=== PATIENT | male | born 1955 | race African-American/Black ===

== ENCOUNTER → 2018-09-25 | Outpatient (CLI) | payer MEDICARE, MEDICAID ==
[2018-09-26 09:17] LABS: ABSOLUTE EOSINOPHILS # (AUTO) 0.1 10^3/uL (0.0-0.6); ABSOLUTE LYMPHOCYTES (AUTO) 2.7 10^3/uL (0.5-4.7); ABSOLUTE MONOCYTES (AUTO) 0.8 10^3/uL (0.1-1.4); ABSOLUTE NEUT (AUTO) 1.4 10^3/uL (1.7-8.2); BASOPHILS % (AUTO) 0.5 % (0-2); EOSINOPHILS % (AUTO) 2.4 % (0-6); HEMATOCRIT 38.9 % (37.9-51.0); HEMOGLOBIN 13.2 g/dL (13.5-17.0); LYMPHOCYTES % (AUTO) 53.6 % (13-45); MEAN CORPUSCULAR HEMOGLOBIN 30.9 pg (27.0-33.4); MEAN CORPUSCULAR HGB CONC 33.9 g/dL (32.0-36.0); MEAN CORPUSCULAR VOLUME 91 fl (80-97); MONOCYTES % (AUTO) 16.5 % (3-13); PLATELET COUNT 191 10^3/uL (150-450); RED BLOOD COUNT 4.26 10^6/uL (4.35-5.55); RED CELL DISTRIBUTION WIDTH 13.5 % (11.5-14.0); TOTAL CELLS COUNTED % (AUTO) 100 %; WHITE BLOOD COUNT 5.1 10^3/uL (4.0-10.5)
[2018-09-26 09:34] LABS: ALANINE AMINOTRANSFERASE 47 U/L (21-72); ALBUMIN 4.6 g/dL (3.5-5.0); ALKALINE PHOSPHATASE 76 U/L (38-126); ANION GAP 8 (5-19); ASPARTATE AMINO TRANSFERASE 76 U/L (17-59); BILIRUBIN,DIRECT 0.2 mg/dL (0.0-0.4); BILIRUBIN,TOTAL 0.7 mg/dL (0.2-1.3); BLOOD UREA NITROGEN 14 mg/dL (7-20); CALCIUM 9.8 mg/dL (8.4-10.2); CARBON DIOXIDE 26 mmol/L (22-30); CHLORIDE 109 mmol/L (98-107); CHOLESTEROL 130.33 mg/dL (0-200); GLUCOSE 129 mg/dL (75-110); POTASSIUM 4.3 mmol/L (3.6-5.0); SODIUM 143.1 mmol/L (137-145); TOTAL PROTEIN 7.4 g/dL (6.3-8.2); TRIGLYCERIDES 90 mg/dL (<150)
[2018-09-26 09:45] LABS: DIRECT LDL 69 mg/dL (<100)
[2018-09-26 10:12] LABS: APPEARANCE,URINE CLOUDY; BILIRUBIN,URINE NEGATIVE (NEGATIVE); CALCIUM OXALATE CRYSTALS,URINE MANY /HPF; COLOR,URINE DARK YELLOW; GLUCOSE, URINE NEGATIVE (NEGATIVE); KETONES,URINE TRACE mg/dL (NEGATIVE); LEUKOCYTE ESTERASE,URINE MODERATE (NEGATIVE); NITRITE,URINE NEGATIVE (NEGATIVE); PROTEIN,URINE NEGATIVE (NEGATIVE); URINE SPECIFIC GRAVITY 1.029
== END ==
LOC: OD 14:18
PROVIDERS: ATTEND Physician Assistant
DX: F20.3 Undifferentiated schizophrenia (principal); Z79.899 Other long term (current) drug therapy
CPT/HCPCS: 36415; 80053; 80061; 81001; 83036; 85025; 87086

== ENCOUNTER 2018-10-31 21:52 | Emergency (ER) | payer MEDICARE, MEDICAID ==
[2018-11-01 02:02] LABS: ABSOLUTE EOSINOPHILS # (AUTO) 0.1 10^3/uL (0.0-0.6); ABSOLUTE LYMPHOCYTES (AUTO) 2.1 10^3/uL (0.5-4.7); ABSOLUTE MONOCYTES (AUTO) 0.4 10^3/uL (0.1-1.4); ABSOLUTE NEUT (AUTO) 1.1 10^3/uL (1.7-8.2); BASOPHILS % (AUTO) 0.7 % (0-2); EOSINOPHILS % (AUTO) 3.3 % (0-6); HEMATOCRIT 36.6 % (37.9-51.0); HEMOGLOBIN 12.4 g/dL (13.5-17.0); LYMPHOCYTES % (AUTO) 55.6 % (13-45); MEAN CORPUSCULAR HEMOGLOBIN 31.5 pg (27.0-33.4); MEAN CORPUSCULAR VOLUME 93 fl (80-97); MONOCYTES % (AUTO) 11.2 % (3-13); PLATELET COUNT 168 10^3/uL (150-450); RED BLOOD COUNT 3.95 10^6/uL (4.35-5.55); RED CELL DISTRIBUTION WIDTH 13.7 % (11.5-14.0); SEGMENTED NEUTROPHILS % (AUTO) 29.2 % (42-78); TOTAL CELLS COUNTED % (AUTO) 100 %; WHITE BLOOD COUNT 3.8 10^3/uL (4.0-10.5)
[2018-11-01 02:44] LABS: ALANINE AMINOTRANSFERASE 23 U/L (21-72); ALCOHOL < 10 mg/dL (NONE DETECTED); ALKALINE PHOSPHATASE 60 U/L (38-126); ANION GAP 7 (5-19); ASPARTATE AMINO TRANSFERASE 20 U/L (17-59); BILIRUBIN,DIRECT 0.3 mg/dL (0.0-0.4); BILIRUBIN,TOTAL 0.5 mg/dL (0.2-1.3); BLOOD UREA NITROGEN 13 mg/dL (7-20); CARBON DIOXIDE 32 mmol/L (22-30); CHLORIDE 103 mmol/L (98-107); GLUCOSE 111 mg/dL (75-110); SODIUM 142.2 mmol/L (137-145); TOTAL PROTEIN 6.8 g/dL (6.3-8.2)
[2018-11-01 02:45] LABS: ACETAMINOPHEN < 10 ug/mL (10-30); SALICYLATE < 1.0 mg/dL (2.0-20.0)
--- NOTE | 2018-11-01 03:50 | ER Document Report ---
Addendum entered and electronically signed by ANA MARIA GRIGGS DO 11/08/18 17:24: Discharge - Discharge Clinical Impression: Paranoia Schizophrenia Qualifiers: Schizophrenia type: unspecified Qualified Code(s): F20.9 - Schizophrenia, unspecified Condition: Stable Disposition: HOME, SELF-CARE Additional Instructions: You have been evaluated by both medical and behavioral health providers while in the emergency department. you are felt to be at your baseline and stable. You have been cleared from both acute medical and psychiatric services. Schizophrenia Schizophrenia is a chemical disorder that affects how the brain functions. The exact cause is unknown, but it tends to run in families. It is NOT caused by emotional trauma. Schizophrenia causes disordered thinking, including unusual beliefs and inability to "process" happenings around the patient. Patients with schizophrenia benefit greatly from medicine. These medicines are called antipsychotics. Never stop the medicine without the doctor's approval. Counselling may help the patient deal with his disease. Schizophrenics require a very ordered environment. Stresses and sudden changes may bring out symptoms. Drugs and alcohol abuse may become problems. Contact the counsellor or crisis line if there are thoughts of suicide or of harming others, or if you become aware of unusual thoughts or beliefs Follow up: You should follow up with your outpatient medication provider at [facility] ([facility]) within 5-7 days. you should take your medications as prescribed. They are the same medications your provider had prescribed to you. If your symptoms return, persist or worsen contact your physician, utilize mobile crisis or return to the emergency department. Prescriptions: Olanzapine [Zyprexa] 20 mg PO QHS #14 tablet Benztropine Mesylate [Cogentin 1 mg Tablet] 1 tab PO DAILY #14 tab Lorazepam [Ativan 0.5 mg Tablet] 0.5 mg PO Q8 PRN #14 tab PRN Reason: anxiety Referrals: [facility] [Outside] - Follow up in 1 week [facility] Crisis Team [Outside] - Follow up as needed SUZANNA KINNEY PA-C [Primary Care Provider] - Follow up as needed Addendum entered and electronically signed by SOLANGE DAMON LPC 11/08/18 17:11: Discharge - Discharge Clinical Impression: Paranoia Schizophrenia Qualifiers: Schizophrenia type: unspecified Qualified Code(s): F20.9 - Schizophrenia, unspecified Condition: Stable Disposition: HOME, SELF-CARE Additional Instructions: You have been evaluated by both medical and behavioral health providers while in the emergency department. you are felt to be at your baseline and stable. You have been cleared from both acute medical and psychiatric services. Schizophrenia Schizophrenia is a chemical disorder that affects how the brain functions. The exact cause is unknown, but it tends to run in families. It is NOT caused by emotional trauma. Schizophrenia causes disordered thinking, including unusual beliefs and inability to "process" happenings around the patient. Patients with schizophrenia benefit greatly from medicine. These medicines are called antipsychotics. Never stop the medicine without the doctor's approval. Counselling may help the patient deal with his disease. Schizophrenics require a very ordered environment. Stresses and sudden changes may bring out symptoms. Drugs and alcohol abuse may become problems. Contact the counsellor or crisis line if there are thoughts of suicide or of harming others, or if you become aware of unusual thoughts or beliefs Follow up: You should follow up with your outpatient medication provider at [facility] [place] ([facility]) within 5-7 days. you should take your medications as prescribed. They are the same medications your provider had prescribed to you. If your symptoms return, persist or worsen contact your physician, utilize mobile crisis or return to the emergency department. Referrals: SUZANNA KINNEY PA-C [Primary Care Provider] - Follow up as needed [facility] [Outside] - Follow up in 1 week [facility] Crisis Team [Outside] - Follow up as needed Original Note: ED General - General Chief Complaint: Psych Problem Stated Complaint: IVC Time Seen by Provider: 11/01/18 00:43 Primary Care Provider: SUZANNA KINNEY PA-C [Primary Care Provider] - Follow up as needed Notes: Patient is a 62-year-old male with a past history of blindness, schizophrenia, presents on involuntary commitment. The patient is not a reliable historian, states that he should not be here, that his family is using IVC to get him out of the house. I do see report does indicate that the patient has been agitated, paranoid, fighting at the area, compatible with a members, putting cigarettes out on the floor, refusing to bathe or take care of himself. Patient denies some of these allegations although does state that he has not been cleaning himself and believes that people are trying to cursed him. He is not currently taking any medications. Nothing seems to improve or worsen his symptoms. Patient denies a history of previous psychiatric diagnoses. TRAVEL OUTSIDE OF THE [place] IN LAST 30 DAYS: No - Related Data Allergies/Adverse Reactions: No Known Allergies Allergy (Unverified 10/31/18 21:53) Past Medical History - General Information source: Patient - Social History Smoking Status: Current Every Day Smoker Chew tobacco use (# tins/day): No Frequency of alcohol use: None Drug Abuse: None Lives with: Family Family History: Reviewed & Not Pertinent Patient has suicidal ideation: No Patient has homicidal ideation: No Neurological Medical History: Reports: Hx Migraine Renal/ Medical History: Denies: Hx Peritoneal Dialysis Review of Systems - Review of Systems Notes: Constitutional: Negative for fever. HENT: Negative for sore throat. Eyes: Negative for visual changes. Cardiovascular: Negative for chest pain. Respiratory: Negative for shortness of breath. Gastrointestinal: Negative for abdominal pain, vomiting or diarrhea. Genitourinary: Negative for dysuria. Musculoskeletal: Negative for back pain. Skin: Negative for rash. Neurological: Negative for headaches, weakness or numbness. 10 point ROS negative except as marked above and in HPI. Physical Exam - Vital signs Vitals: Temp Pulse Resp BP Pulse Ox 98.2 F 83 18 103/84 100 10/31/18 22:01 10/31/18 22:01 10/31/18 22:01 10/31/18 22:01 10/31/18 22:01 Interpretation: Normal Notes: PHYSICAL EXAMINATION: GENERAL: Well-appearing, well-nourished and in no acute distress. HEAD: Atraumatic, normocephalic. ENT: nares patent, oropharynx clear without exudates. Moist mucous membranes. NECK: Normal range of motion, supple without lymphadenopathy LUNGS: Breath sounds clear to auscultation bilaterally and equal. No wheezes rales or rhonchi. HEART: Regular rate and rhythm without murmurs ABDOMEN: Soft, nontender, normoactive bowel sounds. No guarding, no rebound. No masses appreciated. EXTREMITIES: Normal range of motion, no pitting or edema. No cyanosis. NEUROLOGICAL: No focal neurological deficits. Moves all extremities spontaneously and on command. PSYCH: Normal mood, normal affect. SKIN: Warm, Dry, normal turgor, no rashes or lesions noted. Course - Re-evaluation Re-evalutation: 11/01/18 03:48 Patient presents on involuntary commitment due to familial concerns of not taking care of himself, stating that people are trying to cursed him, quite paranoid about his family's interactions. The patient himself states that he does believe people are trying to cursed him, believes that he is here because his family wants to get rid of him and they are using this IVC as a means to get him out of the house and into an institution. Patient states that he has not "psycho". Does not take any medications. Is otherwise calm and cooperative. He is blind at baseline. Denies any physical complaints. Physical screening exam otherwise unremarkable. Labs unremarkable. He is cleared for evaluation disposition by [facility] in the morning. - Vital Signs Vital signs: Temp Pulse Resp BP Pulse Ox 98.2 F 83 18 103/84 100 10/31/18 22:01 10/31/18 22:01 10/31/18 22:01 10/31/18 22:01 10/31/18 22:01 - Laboratory Result Diagrams: 11/01/18 01:35 11/01/18 01:35 Laboratory results interpreted by me: 11/01/18 11/01/18 01:35 01:35 WBC 3.8 L RBC 3.95 L Hgb 12.4 L Hct 36.6 L Seg Neutrophils % 29.2 L Lymphocytes % 55.6 H Absolute Neutrophils 1.1 L Carbon Dioxide 32 H Glucose 111 H Salicylates < 1.0 L Acetaminophen < 10 L - EKG Interpretation by Me Additional EKG results interpreted by me: 11/01/18 03:48 Sinus rhythm, rate 61. No ST elevations or depressions. QTC is 456. Discharge - Discharge Clinical Impression: Paranoia Schizophrenia Qualifiers: Schizophrenia type: unspecified Qualified Code(s): F20.9 - Schizophrenia, unspecified Referrals: SUZANNA KINNEY PA-C [Primary Care Provider] - Follow up as needed
[2018-11-01 04:08] LABS: APPEARANCE,URINE CLOUDY; BILIRUBIN,URINE NEGATIVE (NEGATIVE); CALCIUM OXALATE CRYSTALS,URINE MANY /HPF; COLOR,URINE AMBER; GLUCOSE, URINE NEGATIVE (NEGATIVE); KETONES,URINE NEGATIVE (NEGATIVE); LEUKOCYTE ESTERASE,URINE SMALL (NEGATIVE); NITRITE,URINE NEGATIVE (NEGATIVE); PROTEIN,URINE NEGATIVE (NEGATIVE); URINE SPECIFIC GRAVITY 1.023
[2018-11-01 04:23] LABS: URINE AMPHETAMINES SCREEN NEGATIVE; URINE BARBITURATES SCREEN NEGATIVE; URINE BENZODIAZEPINES SCREEN NEGATIVE; URINE COCAINE SCREEN NEGATIVE; URINE MARIJUANA (THC) SCREEN UNCONFIRMED POSITIVE; URINE METHADONE SCREEN NEGATIVE; URINE PHENCYCLIDINE SCREEN NEGATIVE
--- NOTE | 2018-11-01 10:26 | ER Document Report ---
Doctor's Note Notes: 11/01/18 10:25 Patient seen and evaluated. He does not appear to be in any acute distress. He does not want to eat breakfast and states that he would like his own food. He is paranoid that the food is somehow contaminated and will poison him. Patient has had significant weight loss recently likely from his paranoid behaviors. His lab work was unremarkable and vital signs are stable. Recommend admission to psychiatric facility for further management of his acute paranoia
--- NOTE | 2018-11-01 16:34 | PSYCHOLOGICAL NOTE ---
Psych Note - Psych Note Date seen by psych provider: 11/01/18 Time seen by psych provider: 07:55 Psych Note: Reason for Consult: Delusions Patient is a 62-year-old male with a past history of blindness, schizophrenia, presents on involuntary commitment. The patient is not a reliable historian, states that he should not be here, that his family is using IVC to get him out of the house. Patient discloses that he left his family's home and was looking for a place to stay because he wants to live on his own. Patient denies any thoughts of wanting to harm himself or others and denies any difficulties with auditory visual hallucinations. When asked about his concerns his family was trying to hurt him he states "in a way I was feeling they were trying to hurt me but now no I just would like a place to live on my own." Patient continues to minimize his delusions. Patient does report that he has never weighed so little in all his life. Patient is approximately 136 pounds and reports that he normally weighs 170. When asked what led to the weight loss he reports that he just did not want to eat he refuses to further discuss why he did not want to eat. Clinician notes there is previous documentation reporting the patient has stopped eating because he is afraid he is being poisoned. Patient confirms he goes to [facility] and has been taking his medication however then states that he may have missed a few days recently. When asked about thoughts of wanting to harm himself or others he states "I am not a violent person I have never done anything violent or threatening you can ask my doctors." Patient is alert and orientated to person, place, time and circumstance. Mood is euthymic with flat affect. Patient denies suicidal and homicidal ideation. Patient reportedly has been having paranoid delusions of being poisoned by family. There is significant concern the patient has stopped eating as he has recently lost over 30 pounds. Patient does attempt to minimize and tries to redirect conversation when clinician attempts to discuss his delusions. Thought processes are organized and linear however illogical. Patient is blind. Conversational speech is within normal rate, tone and prosody. Clinician notes patient is very polite and proper. Patient does have a noticeable aroma of body odor. There is reports of concern the patient has stopped and self care and refuses to bathe. Intellectual abilities appear to be within the average range. Attention and concentration are fair. Insight, judgment, impulse control is poor. Schizophrenia per history Impression\\plan: Patient is recommended to continue under IVC. While patient de nies thoughts of wanting to harm himself or others, patient is having delusions that have manifested to the point that he is unable to keep himself from harm. Patient has stopped eating, he is afraid of being poisoned, and has recently lost over 30 pounds. Patient is recently stopped self-care and does not bathe. Patient attempts to minimize and redirect and does not appear to fully disclose his concerns. IVC petition is from family which reports the patient has been having difficulties with both auditory and visual hallucinations as evidenced by fighting with the air, reporting he is hearing things. He has started walking in the streets (patient is blind) and has been destroying furniture and putting out his cigarettes on floors in the home.
[2018-11-01] MEDS: OLANZAPINE 5 MG TABLET PO SCH (23:20)
--- NOTE | 2018-11-01 23:29 | EKG REPORT ---
SEVERITY:- NORMAL ECG - SINUS RHYTHM : Confirmed by: Carlos Eduardo Castillo 01-Nov-2018 23:29:09
[2018-11-02] MEDS: PRENATAL VITAMIN W DHA CAPSULE PO SCH (09:44)
--- NOTE | 2018-11-02 17:09 | PSYCHOLOGICAL NOTE ---
Psych Note - Psych Note Date seen by psych provider: 11/02/18 Time seen by psych provider: 07:55 Psych Note: Reason for Consult: Delusions Patient is a 62-year-old male with a past history of blindness, schizophrenia, presents on involuntary commitment. The patient is not a reliable historian, states that he should not be here, that his family is using IVC to get him out of the house. Check-in conducted with patient Patient continues to not eat well however does drink 1 Ensure, one milk, and one ice cream. Patient asked for a shower. Patient is very pleasant with euthymic mood and congruent affect. Patient continues to endorse not wanting to return home as he feels his family is trying to kill him. Continue home medications Schizophrenia per history Impression\\plan: Patient is recommended to continue under IVC. While patient denies thoughts of wanting to harm himself or others, patient is having delusions that have manifested to the point that he is unable to keep himself from harm. Patient has stopped eating, he is afraid of being poisoned, and has recently lost over 30 pounds. Patient has recently stopped self-care and does not bathe; clincian notes the patient has improved and has asked for a shower. Patient attempts to minimize and redirect and does not appear to fully disclose his concerns. IVC petition is from family which reports the patient has been having difficulties with both auditory and visual hallucinations as evidenced by fighting with the air, reporting he is hearing things. He has started walking in the streets (patient is blind) and has been destroying furniture and putting out his cigarettes on floors in the home. Overall there are concerns as the patient's delusions have started to manifest into self-harm with refusing to eat. Patient admits to being off his medications "for a few days."Patient's home medications have been restarted. Patient be reevaluated. Dr. Preciado was consulted to care management this patient; attending physicians in agreement with recommendations and disposition.
--- NOTE | 2018-11-02 17:31 | ER Document Report ---
Doctor's Note Notes: 11/02/18 17:29 I reviewed the patient's chart, and the psychiatric notes for today. The patient still believes that his food is being poisoned and is refusing to eat food. The nurse was able to give him Ensure in small cartons, telling him it is milk. He feels comfortable taking the Ensure because he is able to open the carton himself. He will remain on IVC hold as he does still remain a danger to himself based on the behavior that was cited in the IVC paperwork, and his continued paranoid delusions about being poisoned.
[2018-11-02] MEDS: OLANZAPINE 5 MG TABLET PO SCH (22:32)
[2018-11-03] MEDS: PRENATAL VITAMIN W DHA CAPSULE PO SCH (09:53)
--- NOTE | 2018-11-03 10:38 | ER Document Report ---
Doctor's Note Notes: 11/03/18 9:37 Patient with no issues overnight Apparently became agitated this morning when he was told he might be going home AVSS NAD Asking for crackers Will discuss with mental health
--- NOTE | 2018-11-03 16:29 | PSYCHOLOGICAL NOTE ---
Psych Note - Psych Note Date seen by psych provider: 11/03/18 Time seen by psych provider: 08:40 Psych Note: Reason for Consult: Delusions Patient is a 62-year-old male with a past history of blindness, schizophrenia, presents on involuntary commitment. The patient is not a reliable historian, states that he should not be here, that his family is using IVC to get him out of the house. Check-in conducted with patient Patient's mood is euthymic with congruent affect. He reports that he is feeling "good." When clinician discusses the patient not eating he confirms that he has not been eating out of fear that he would be poisoned; "that is part of it my family have just not going to eat my mother's food." He continued to make the connection of his recent significant weight loss to him not eating; "I guess is why lost all this weight... I have never weighed this little before." He continued to report that he would be fine if he could go and stay at [facility] senior care so he can have his own place. He reports that he will not eat as his mother's home. When discussing options of other places to eat if he returned to live home at home with his mother patient was unable to problem solve and identifying alternate locations to eat. Patient reports that upon discharge he will just walked to [facility] to get his own place; "I am not going back there so they can just keep doing what they are doing..., Like here you are doing it to... Keeping me locked up in a room." Patient is unable or unwilling to understand that the patient cannot just walk to a senior care for a new place to stay. Clinician successfully attempted to psychoeducation patient on application process etc. Clinician was notified that the patient has been deteriorating has been very irritable with pacing. Continue home medications Schizophrenia per history Impression\\plan: Patient is recommended to continue under IVC. While patient denies thoughts of wanting to harm himself or others, patient is having delusions that have manifested to the point that he is unable to keep himself from harm. Patient has stopped eating, he is afraid of being poisoned, and has recently lost over 30 pounds. Patient is recently stopped self-care and does not bathe. IVC petition is from family which reports the patient has been having difficulties with both auditory and visual hallucinations as evidenced by fighting with the air, reporting he is hearing things. He has started walking in the streets (patient is blind) and has been destroying furniture and putting out his cigarettes on floors in the home. Patient continues to report that his family is trying to kill him and states that he would like to go live in a senior care. He discloses that he will eat when he is staying in a senior care however continues to report that he not eat if he returns back to his home. Patient is unable to engage in problem solving and identifying alternate locations of eating while living with his family. Clinician notes patient did eat for the first time last night. Some improvement has been noticed. Integrated family services will be looking into possibly assisting the patient into getting into a senior care. Patient will be reevaluated. Dr. Preciado was consulted to care management this patient; attending physicians agreement with recommendations and disposition.
[2018-11-03] MEDS: OLANZAPINE 5 MG TABLET PO SCH (21:32)
[2018-11-03] MEDS ORDERED: OLANZAPINE 5 MG TABLET ONE (22:01)
--- NOTE | 2018-11-04 09:25 | ER Document Report ---
Doctor's Note Notes: 11/04/18 09:25 As the rounding physician this AM, I assessed the patient's labs, vitals, and records. No concerning findings this morning. Patient denies any acute complaints. Patient is cleared for disposition by [facility]. PHYSICAL EXAMINATION: GENERAL: Well-appearing, well-nourished and in no acute distress. HEAD: Atraumatic, normocephalic. ENT: Nares patent NECK: Normal range of motion LUNGS: No respiratory distress Musculoskeletal: Normal range of motion NEUROLOGICAL: Alert PSYCH: Normal mood, normal affect. SKIN: Warm, Dry, normal turgor, no rashes or lesions noted. 11/04/18 17:04
[2018-11-04] MEDS: PRENATAL VITAMIN W DHA CAPSULE PO SCH (10:15)
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
[2018-11-04] MEDS: OLANZAPINE 5 MG TABLET PO SCH (22:08)
--- NOTE | 2018-11-05 09:20 | ER Document Report ---
Doctor's Note Notes: 11/05/18 09:20 As the rounding physician this AM, I assessed the patient's labs, vitals, and records. No concerning findings this morning. Patient denies any acute complaints. Patient is cleared for disposition by behavioral health. Patient is alert, awake and eating breakfast. 11/05/18 09:20 Psych Note: Impression\plan: Patient is recommended to continue under IVC. Patient was noted to have been cheeking his medications and not taking them. Is unclear how long this is been occurring however one pill was found in a drawer and the patient was noted to spit out the evening medication dose last night. That medication was re-administered successfully. Clinician had long discussion with patient which he explained that the medication felt differently from his normal prescribed medications so he thought he was taking the wrong medication. Patient confirms he will take medications given to him by [facility] staff with no difficulties at this time going forward. While patient is currently his own guardian he is unable to care for himself. The patient's family is working with Adult Protective Services to obtain guardianship. They have been working on attaining a skilled nursing for the patient since he has a history of doing well in them. They are currently concerned because the patient has not been taking medication and started to demonstrate behaviors such as paranoia which she demonstrated previous to past hospitalizations. Patient will be reevaluated. Dr. Preciado was consulted to care management this patient; attending physicians agreement with recommendations and disposition. 11/05/18 09:40 PHYSICAL EXAMINATION: Vital signs reviewed GENERAL: Well-appearing, well-nourished and in no acute distress. LUNGS: No respiratory distress Musculoskeletal: Normal range of motion NEUROLOGICAL: Normal speech, normal gait. PSYCH: Normal mood, normal affect. SKIN: Warm, Dry, normal turgor, no rashes or lesions noted. 11/05/18 10:04 Behavioral health will continue to try to place patient.
--- NOTE | 2018-11-05 12:02 | PSYCHOLOGICAL NOTE ---
Psych Note - Psych Note Date seen by psych provider: 11/05/18 Time seen by psych provider: 07:55 - Re evaluation from [id number]. Psych Note: Reason for Consult: 4th Re evaluation, IVC, had stopped medications, paranoia, persecutory delusions affecting eating and weight loss Contact Permissions: Mother TRACEY Freed [phone] Patient is a 62 year old male in the ED on IVC for paranoia and persecutory delusions which are affecting eating habits and weight loss since stopping medications. Today he was sleeping under the covers initially. When asked how he was doing he stated "I'm doing bad ma' am, i feel like I'm being tortured and held hostage." He denied stopping his medications and commented "it's just my family they have been that way my whole life, I'm not hallucinating, I hear your voice but there are no other voices in my head, and I am having good thoughts all the time." He sat up in bed and swung his legs over the side and stated "I'm blind I'm sorry I can't look you in the eyes." He admitted he stopped eating and lost weight. When asked why he finally commented (took several long pauses) with "I have nothing to say on that ma' am, I feel they already know." Then he asked about breakfast and was made aware it should be delivered soon. He reported "we are going to nip this in the butt, I'm going to get a place to stay where I can make my own food, I will be out of everyone's way, I have no plans to go back to my mother's." When asked about hospitalizations he commented "i have been out 18 years and have not been back since." Diagnosis: 295.90 (F20.9) Schizophrenia by history Impression/Plan: Recommendation to maintain IVC given continued paranoia and delusions surrounding family poisoning his food (he said he was going to get a place to stay where he can cook his own food). He was found to be cheeking medications the other day which has interfered with stabilization. Consulted with Dr. Preciado regarding the management and care of patient. ED Physician in agreement with recommendations.
[2018-11-05] MEDS: PRENATAL VITAMIN W DHA CAPSULE PO SCH (13:34)
[2018-11-05] MEDS: OLANZAPINE 5 MG TABLET PO SCH (22:27)
--- NOTE | 2018-11-06 09:35 | PSYCHOLOGICAL NOTE ---
Psych Note - Psych Note Date seen by psych provider: 11/06/18 Time seen by psych provider: 08:05 - Re evaluation from . Psych Note: Reason for Consult: 5th Re evaluation, IVC, had stopped medications, paranoia, persecutory delusions affecting eating and weight loss Contact Permissions: Mother TRACEY Freed [phone] Patient is a 62 year old male in the ED on IVC for paranoia and persecutory delusions which are affecting eating habits and weight loss since stopping medications. Today he stated "I am good, awake, there's nothing to do here, they say I can't leave I have to stay in my room, I'm not bothering anyone." He said "positive" when asked if he still felt like he didn't want to bother with mother, have his own place and his own food." He further stated "I just want to eat my own food, people give you food and you don't know what's in it, it can make behavior changes." He identified for 16 years he lives with a lady and had his own apartment. He stated he has not been to an institution in 18 years. He denied being Schizophrenic and commented "I'm not hearing voices." He denied hearing voices in the past and said " I never have." He denied previous MH diagnosis but then stated he sees Chloe Cook at [facility]. He reported she prescribed Ativan and Zyprexa for "the thoughts in my head, I'm not having bad ones." Diagnosis: 295.90 (F20.9) Schizophrenia by history Impression/Plan: Recommendation to maintain IVC. He continued to talk about making his own food because what other people put in their food changes your behavior. He had stopped his medications while in the community and was caught cheeking medications in the ED initially. He has been calm and cooperative. If no placement in the next 1-2 days will be planning discharge, as that will make 6-7 days being on IVC in the ED. Consulted with Dr. Preciado regarding the management and care of patient. ED Physician in agreement with recommendations.
[2018-11-06] MEDS: PRENATAL VITAMIN W DHA CAPSULE PO SCH (10:07)
--- NOTE | 2018-11-06 15:26 | ER Document Report ---
Doctor's Note Notes: 11/06/18 15:24 Rounds: Chart reviewed and patient interviewed. Patient is being evaluated for schizophrenia with paranoid delusions. Reportedly has not eaten today. Vital signs are all essentially normal. Lab studies were also essentially normal. Positive for marijuana and his drug screen. Patient appears to be medically stable for transfer or discharge. Michi Hernandez MD
[2018-11-06] MEDS: OLANZAPINE 5 MG TABLET PO SCH (22:18)
--- NOTE | 2018-11-07 09:35 | ER Document Report ---
Doctor's Note Notes: 11/07/18 09:34 Rounds: Chart reviewed and patient interviewed. Patient being treated for schizophrenia with paranoid delusions. Vital signs remain normal. Lab studies were all essentially normal except for positive marijuana on drug screen. Patient sounds much more positive today. Is eating and says the food is good. Patient appears to be medically stable for transfer or discharge. Michi Hernandez MD
[2018-11-07] MEDS: PRENATAL VITAMIN W DHA CAPSULE PO SCH (09:55)
--- NOTE | 2018-11-07 14:17 | PSYCHOLOGICAL NOTE ---
Addendum entered and electronically signed by SOLANGE DAMON LPC 11/09/18 19:11: correction: 6th re evaluation Original Note: Psych Note - Psych Note Date seen by psych provider: 11/07/18 Time seen by psych provider: 11:15 - Observation at 1115. Contact with sister from [id number]. Psych Note: Reason for Consult: 5th Re evaluation, IVC, had stopped medications, paranoia, persecutory delusions affecting eating and weight loss Contact Permissions: Mother TRACEY Petitioner [phone] Patient is a 62 year old male in the ED on IVC for paranoia and persecutory delusions which are affecting eating habits and weight loss since stopping medications. Today observed patient sitting in bed. he has been calm and cooperative while in the ED. he answers questions appropriately with linear thoughts. He has been eating his food and typically asks where breakfast is each morning. Spoke to patient's sister Nelly ([phone]) about being stabilized and felt to be at baseline so medically and psychiatrically cleared and ready for discharge. She stated no family can bring him in, the last place he stayed was at their mother's temporarily for the last several months. She noted mother is elderly and has to be reminded to take her own medications let alone have oversight over another person. She reported she has been in contact with Jennifer from [facility], spoke to her last Tuesday and Jennifer said she would make contact when a bed is available. Sister said she would call Jnenifer to find out status. She identified family had been in contact with [facility] for housing/living arrangement as well. Behavioral Health Junior Data Analyst called sister back. Jennifer from [facility] said still no bed availability. She contacted [facility] where he had lived previously and the lady was to check in on availability then get back to her. Contacted ED SW (spoke to via telephone) and Hospital DC Planning (left voice mail) with respect to patient. Wanted to check to see if there was anything else they might be able to assist family and patient with in terms of manager terminal living. Diagnosis: 295.90 (F20.9) Schizophrenia by history Impression/Plan: Patient is cleared from acute psychiatric services. Recommend ation to rescind IVC. He has denied SI/HI and these were never presenting concerns. He has been eating the past 2 days or so. He still talks about getting his own place to cook his own food but does not perseverate on that. He has been calm and cooperative in the ED. He is felt to be at baseline. Spoke to patient's sister who identified family cannot take him in, the last place he had been at was mother's but she is elderly and has to be reminded to take her own medications let alone be in charge of someone else and she has been waiting on a call from Jennifer at [facility] (waiting since last Tuesday) for bed availability. She stated she would call Jennifer to inquire about status. She stated technically patient is currently homeless. Explained would see if hospital SW or DC Planning could do anything but unsure since family has already sought placement efforts which is what they do. Consulted with Dr. Preciado regarding the management and care of patient. ED Physician made aware of recom mendations. Daughter spoke to Jennifer at [facility] and still no availability. She also contacted [facility] home and they are to check on availability and call sister back. No safe discharge plan at this time (blind, Hx Schizophrenia and just now stabilized). IVC expires tomorrow so will keep it in place tonight and allow to tomorrow. Have contacted ED SW and Hospital DC Planning regarding patient.
[2018-11-07] MEDS: OLANZAPINE 5 MG TABLET PO SCH (23:28)
[2018-11-08] MEDS: LORAZEPAM 0.5 MG TABLET PO PRN ×3 (01:31→17:14)
[2018-11-08] MEDS: PRENATAL VITAMIN W DHA CAPSULE PO SCH (10:26)
--- NOTE | 2018-11-08 11:33 | ER Document Report ---
Doctor's Note Notes: 11/08/18 11:32 Patient seen and evaluated. He is medically stable. Currently he is sitting in bed calm and cooperative. Patient has had paranoid behaviors intermittently while in the emergency room. Patients family does not feel comfortable with him being discharged home. He will be placed for continued treatment of his paranoia and psychosis.
--- NOTE | 2018-11-08 18:49 | PSYCHOLOGICAL NOTE ---
Psych Note - Psych Note Date seen by psych provider: 11/08/18 Time seen by psych provider: 07:48 - Overheard and obsrevation at 0748. Interaction.check in at 0814. Psych Note: Reason for Consult: 7th Re evaluation, IVC, had stopped medications, paranoia, persecutory delusions affecting eating and weight loss Contact Permissions: Mother TRACEY Freed [phone] Patient is a 62 year old male in the ED on IVC for paranoia and persecutory delusions which are affecting eating habits and weight loss since stopping medications. Observed patient have a behavioral episode this morning (slammed door, sat in chair moving it about when he yelled at nobody but was clearly directed towards mother, slammed toilet seat). Medical staff reported he had similar episode last evening. Tuesday-Tuesday he had been calm, cooperative without behavioral disturbance. He was able to be redirected today, with multiple prompts while going through the episode, once he got it out he was back to the way he had been the prior 3 days. When this clinician spoke with him he was standing in his door way. He was made aware trying to discharge but not to his mother's. He said "positive" when mentioned he had been adamant about not returning to mother's. His mood improved when he was told we were trying to discharge him to a place where he might be able to have some of his own space. Spoke to Sister Nelly. She stated [facility] will not be ready for another month but a Mesha Aguayo had said she would take him in but first wanted to know about his behaviors and if stable. Sister said she was at work, would pick patient up when she was done. She was made aware of the behavioral outburst and concern for decompensation since he has been in the ED for 8 days and it is not the appropriate environment. Diagnosis: 295.90 (F20.9) Schizophrenia by history Impression/Plan: Patient is cleared from acute psychiatric services. Recommendation to rescind IVC. He has denied SI/HI and these were never presenting concerns. He has been eating the past 2 days or so. He still talks about getting his own place to cook his own food but does not perseverate on that. He has been calm and cooperative in the ED with the exception of an outburst last night and this morning however there are concerns for decompensation since this is day 8 in an environment that does not meet all his needs. He is felt to be at baseline. Consulted with Dr. Preciado regarding the management and care of patient. ED Physician in agreement with recommendations. Sister came to get patient. He was calm and cooperative with her and staff. He wanted his clothes he had when he came in (had been taken by family to wash) and she did not want him to wear the blue scrubs. She walked out, could not be found and did not answer her phone 5 times in a row, the last time this clinician left voice mail with call back information. She never returned call. Patient to be held overnight, if she shows up he can be discharged to her. Until then want a safe discharge given patient's age, the fact he is blind and that he just got stabilized back to baseline.
[2018-11-08] MEDS: OLANZAPINE 5 MG TABLET PO SCH (22:17)
[2018-11-09] MEDS: PRENATAL VITAMIN W DHA CAPSULE PO SCH (10:00)
--- NOTE | 2018-11-09 10:01 | ER Document Report ---
Doctor's Note Notes: 11/09/18 09:59 Patient seen and evaluated. He is resting comfortably and in no acute distress. He has not had any behavioral issues overnight or this morning. Patient was dressed and ready for discharge yesterday when his sister showed up she was reportedly agitated and mad that his papers were not and hand ready for him to leave the department immediately. Patient sister than left the emergency room and was unable to be reached despite multiple calls from the psych team. APS will be notified of abandonment. Patient is still pending discharge planning. He is stable for discharge or transfer.
[2018-11-09] MEDS: OLANZAPINE 5 MG TABLET PO SCH (21:31)
[2018-11-10] MEDS: PRENATAL VITAMIN W DHA CAPSULE PO SCH (10:41)
[2018-11-10 12:13] VITALS: BP 115/76
== END 2018-11-10 17:44 | disposition home or self-care (01) ==
LOC: ER 21:52
DX: F22 Delusional disorders (principal); F20.9 Schizophrenia, unspecified; F17.210 Nicotine dependence, cigarettes, uncomplicated; H54.7 Unspecified visual loss; R63.4 Abnormal weight loss
CPT/HCPCS: 93005; 99285; 36415; 80307 ×4; 85025; 80053; 81001; 93010; A9270 ×19; J3490

== ENCOUNTER 2018-11-15 21:40 | Emergency (ER) | payer MEDICARE, MEDICAID ==
--- NOTE | 2018-11-15 22:39 | ER Document Report ---
ED General - General Chief Complaint: Psych Problem Stated Complaint: IVC Time Seen by Provider: 11/15/18 22:24 Primary Care Provider: SUZANNA KINNEY PA-C [Primary Care Provider] - Follow up as needed Notes: Patient is a 63-year-old male presents on involuntary commitment paperwork because of threats of wanting to hurt himself and potentially others. When I walk in the room patient is laying down will not speak to me. He is staying perfectly still. He will not respond to any of my questions. I did not get a r eport of him receiving any medications prior to arrival to the ED. TRAVEL OUTSIDE OF THE [place] IN LAST 30 DAYS: No - Related Data Allergies/Adverse Reactions: No Known Allergies Allergy (Verified 11/15/18 22:05) Past Medical History - Social History Smoking Status: Current Every Day Smoker Frequency of alcohol use: None Drug Abuse: None Family History: Reviewed & Not Pertinent Patient has suicidal ideation: Yes Patient has homicidal ideation: Yes Neurological Medical History: Reports: Hx Migraine Renal/ Medical History: Denies: Hx Peritoneal Dialysis Review of Systems - Review of Systems -: Yes ROS unobtainable due to patient's medical condition - Patient will not answer questions. Physical Exam - Vital signs Vitals: Temp Pulse Resp BP Pulse Ox 98.4 F 77 20 141/87 H 100 11/15/18 22:54 11/15/18 22:54 11/15/18 22:54 11/15/18 22:54 11/15/18 22:54 - Notes Notes: General Appearance: She is laying in bed with eyes closed. Vitals: reviewed, See vital signs table. Head: no swelling or tenderness to the head Mouth: No decreasd moisture Neck: Supple, no neck tenderness, No thyromegaly Lungs: No wheezing, No rales, No rhonci, No accessory muscle use, good air exchange bilaterally. Heart: Normal rate, Regular rythm, No murmur, no rub Abdomen: Normal BS, soft, No rigidity, No abdominal tenderness, No guarding, no rebound, no abdominal masses, no organomegaly Extremities: s good pulses in all extremities, no swelling or tenderness in the extremities, no edema. Skin: warm, dry, appropriate color, no rash Neuro: Patient laying in bed with eyes closed. When I picked the patient's right arm off the bed he will hold it up off the bed and then eventually it down. He will not follow commands or move his extremities when asked him to. Neuro exam is limited based on the fact the patient will not follow any commands or cooperate with exam. Course - Re-evaluation Re-evalutation: 11/15/18 22:38 Clinical evaluate the patient he is lying in the bed with his eyes closed. She will not move or answer any questions. Patient is obviously awake. I open of his eyes any keep his eyes open but again will not talk to me. When I lift his arm off the bed he keeps the arm elevated off the bed against gravity after I let go of it. Further history is not obtainable at this time. I informed the nurse to put him on a monitor and to obtain vital signs and Accu-Chek and then I will do further workup to make sure it is not a medical components was going on. Nurse informs me that when the patient arrived he was walking under his own power and was talking to the transfer team who brought him in. 11/16/18 05:47 Patient's laboratory evaluation is unremarkable. The only thing pending is urinalysis and urine drug screen. I suspect the patient's symptoms of not responding or talking to me are behavioral being that before into the room he had just walked back to the room and got changed in the bathroom and was showing no signs of what he is now showing. Once patient's drug screen is back he will be medically stable for mental health evaluation as long as his vital signs remain normal. - Vital Signs Vital signs: Temp Pulse Resp BP Pulse Ox 98.2 F 78 18 122/70 100 11/17/18 16:00 11/17/18 16:00 11/17/18 16:00 11/17/18 16:00 11/17/18 16:00 - Laboratory Result Diagrams: 11/15/18 23:06 11/15/18 23:06 Laboratory results interpreted by me: 11/15/18 11/15/18 11/16/18 23:06 23:06 09:21 RBC 3.96 L Hgb 12.2 L Hct 36.7 L Urine Ketones 20 H Urine Urobilinogen 2.0 H Ur Leukocyte Esterase MODERATE H Salicylates < 1.0 L Acetaminophen < 10 L Discharge - Discharge Clinical Impression: Depressed Qualifiers: Depression Type: unspecified Qualified Code(s): F32.9 - Major depressive disorder, single episode, unspecified Condition: Stable Disposition: PSYCH HOSP/UNIT Referrals: SUZANNA KINNEY PA-C [Primary Care Provider] - Follow up as needed
[2018-11-15 23:16] LABS: ABSOLUTE EOSINOPHILS # (AUTO) 0.1 10^3/uL (0.0-0.6); ABSOLUTE LYMPHOCYTES (AUTO) 1.8 10^3/uL (0.5-4.7); ABSOLUTE MONOCYTES (AUTO) 0.6 10^3/uL (0.1-1.4); ABSOLUTE NEUT (AUTO) 2.2 10^3/uL (1.7-8.2); BASOPHILS % (AUTO) 0.6 % (0-2); EOSINOPHILS % (AUTO) 1.8 % (0-6); HEMATOCRIT 36.7 % (37.9-51.0); HEMOGLOBIN 12.2 g/dL (13.5-17.0); LYMPHOCYTES % (AUTO) 39.1 % (13-45); MEAN CORPUSCULAR HEMOGLOBIN 30.9 pg (27.0-33.4); MEAN CORPUSCULAR HGB CONC 33.3 g/dL (32.0-36.0); MEAN CORPUSCULAR VOLUME 93 fl (80-97); MONOCYTES % (AUTO) 12.3 % (3-13); PLATELET COUNT 155 10^3/uL (150-450); RED BLOOD COUNT 3.96 10^6/uL (4.35-5.55); RED CELL DISTRIBUTION WIDTH 13.7 % (11.5-14.0); SEGMENTED NEUTROPHILS % (AUTO) 46.2 % (42-78); TOTAL CELLS COUNTED % (AUTO) 100 %; WHITE BLOOD COUNT 4.7 10^3/uL (4.0-10.5)
[2018-11-15 23:35] LABS: ALANINE AMINOTRANSFERASE 29 U/L (21-72); ALBUMIN 4.2 g/dL (3.5-5.0); ALKALINE PHOSPHATASE 79 U/L (38-126); ANION GAP 9 (5-19); ASPARTATE AMINO TRANSFERASE 22 U/L (17-59); BILIRUBIN,DIRECT 0.2 mg/dL (0.0-0.4); BILIRUBIN,TOTAL 0.5 mg/dL (0.2-1.3); BLOOD UREA NITROGEN 15 mg/dL (7-20); CALCIUM 9.4 mg/dL (8.4-10.2); CARBON DIOXIDE 25 mmol/L (22-30); CHLORIDE 106 mmol/L (98-107); GLUCOSE 88 mg/dL (75-110); POTASSIUM 3.7 mmol/L (3.6-5.0); SODIUM 140.4 mmol/L (137-145)
[2018-11-15 23:36] LABS: ACETAMINOPHEN < 10 ug/mL (10-30); ALCOHOL < 10 mg/dL (NONE DETECTED); SALICYLATE < 1.0 mg/dL (2.0-20.0)
--- NOTE | 2018-11-16 00:13 | RADIOLOGY REPORT (SQ) ---
EXAM DESCRIPTION: CT HEAD WITHOUT IV CONTRAST COMPLETED DATE/TME: 11/15/2018 22:35 CLINICAL HISTORY: 63 years, Male, not comunicating COMPARISON: None. TECHNIQUE: 199 Images stored on PACS. All CT scanners at this facility use dose modulation, iterative reconstruction, and/or weight based dosing when appropriate to reduce radiation dose to as low as reasonably achievable (ALARA). [facility]: Dose Right [facility]: CareDose [facility]: Dose Right [facility]: Teradose 4D [facility]: [place] LIMITATIONS: None. FINDINGS: The right globe is intact. Deformity of the left globe. Correlate with patient history. No displaced or depressed skull fracture. No intra or extra-axial hemorrhage. CT is limited for evaluation of acute infarct. No CT evidence for large or territorial acute infarct. No mass or midline shift. IMPRESSION: Negative for acute intracranial abnormality TECHNICAL DOCUMENTATION: Quality ID # [id number]: Final reports with documentation of one or more dose reduction techniques (e.g., Automated exposure control, adjustment of the mA and/or kV according to patient size, use of iterative reconstruction technique) copyright 2011 [employer]- All Rights Reserved
--- NOTE | 2018-11-16 08:02 | EKG REPORT ---
SEVERITY:- BORDERLINE ECG - SINUS RHYTHM NONSPECIFIC ANTEROSEPTAL. ST-T CHANGES : Confirmed by: Eduard Harris MD 16-Nov-2018 08:01:40
--- NOTE | 2018-11-16 08:23 | PSYCHOLOGICAL NOTE ---
Psych Note - Psych Note Date seen by psych provider: 11/16/18 Time seen by psych provider: 08:20 Psych Note: Reason for Consult: IVC Patient is a 63-year-old male presents on involuntary commitment paperwork because of threats of wanting to hurt himself and potentially others. Behavioral health Team contacted APS worker, Santiago. He disclosed he did a home visit yesterday with the patient. He was staying at a friend's home. It was confirmed the patient had been taking his medications as directed. Only significant issue noted was that he was not following house rules of no smoking in the home. The friend that he was living with stated they cannot handle that anymore and has contacted the sister to come and pick him up. She reported to the older adult social work specialist that the sister was to be picking up the patient last night. Patient is observed sitting off to the side of the bed eating breakfast. Patient originally refuses to engage with clinician however does respond by either nodding or shaking his head. He denies any thoughts of wanting to harm himself or others or making any comments alleging these thoughts. He confirms he has been taking his medications. Patient is then noted to whisper however clinician is unable to hear with the patient stated. After sitting quietly for some time, the patient whispered "no more meds." He confirms that he has been taking them but does not want to take them anymore by nodding and shaking his head to questions. When asked if there was anything that can be done to help the patient he whispered "call my older adult social work specialist." Patient is alert and orientated to person, place, time and circumstance. Mood is dysphoric with flat affect. Patient denies suicidal and homicidal ideation. Delusions are absent behaviors congruent with an intact reality based presentation i.e. organized and linear thought process. Patient is blind. Patient is minimally engaging with conversational speech and when does whispers. Does communicate through nonverbal cues i.e. nodding shaking head. Intellectual abilities appear to be within the average range. Attention and concentration are fair. Insight, judgment, impulse control are fair. continue home medications Diagnosis: 295.90 (F20.9) Schizophrenia by history Impression/plan: Patient is recommended for rescind of IVC and is cleared from acute psychiatric services. Patient does not meet IVC criteria per [place] GS 120 2C. Clinician notes patient's sister submitted IVC petition with allegations of the patient stating suicidal ideation, homicidal ideation, not taking his medications, destroying the home he is living in. Clinician notes patient was just discharged on 11/11/2018 which included concerns of the patient destroying his mother's home that he was living in i.e. putting his cigarettes out on the floor and destroying his bedroom. Currently APS worker states the only significant issue of his current living arrangement was that he was smoking in the home not that he was destroying the home. Additionally, both patient and friend he was living with reported the patient had been taking his medications as directed. Patient is visibly dysphoric and minimally engages with clinician; however, is denying any thoughts of wanting to harm himself or others and denies making any statements. Currently, this appears to be a social issue of the family being unable/unwilling to care for the patient. The patient was previously living with a friend however had called the patient's sister to have her pick him up because he was not following house rules of no smoking in the home. Patient's sister immediately IVC the patient and had him brought to [facility] ED. APS is currently involved. At this time the patient is recommended to continue with his home medications. His outpatient mental health provider at [facility]. Patient is currently expressing not wanting to take the medication. This is his right to choose. Patient is currently his own legal guardian and a he is not demonstrating any behaviors of responding to internal stimuli as evidenced by appropriate responding to questions from clinician either verbally or nonverbally. Dr. Preciado was consulted and the care management of this patient; attending physicians in agreement with recommendations and disposition.
[2018-11-16 09:57] LABS: APPEARANCE,URINE SLIGHTLY-CLOUDY; BILIRUBIN,URINE NEGATIVE (NEGATIVE); COLOR,URINE YELLOW; GLUCOSE, URINE NEGATIVE (NEGATIVE); KETONES,URINE 20 mg/dL (NEGATIVE); LEUKOCYTE ESTERASE,URINE MODERATE (NEGATIVE); NITRITE,URINE NEGATIVE (NEGATIVE); PROTEIN,URINE NEGATIVE (NEGATIVE); URINE SPECIFIC GRAVITY 1.025
--- NOTE | 2018-11-16 09:58 | ER Document Report ---
Doctor's Note Notes: 11/16/18 09:57 As the rounding physician this AM, I assessed the patient's labs, vitals, and records. No concerning findings this morning. Patient denies any acute complaints. Patient is cleared for disposition by behavioral health team. IVC rescinded. At this point patient will require placement. PHYSICAL EXAMINATION: GENERAL: Well-appearing, well-nourished and in no acute distress. HEAD: Atraumatic, normocephalic. ENT: Nares patent NECK: Normal range of motion LUNGS: No respiratory distress Musculoskeletal: Normal range of motion NEUROLOGICAL: Alert, awake PSYCH: Refusing to speak SKIN: Warm, Dry, normal turgor, no rashes or lesions noted. 11/16/18 17:51
[2018-11-16 09:59] LABS: URINE AMPHETAMINES SCREEN NEGATIVE; URINE BARBITURATES SCREEN NEGATIVE; URINE BENZODIAZEPINES SCREEN NEGATIVE; URINE COCAINE SCREEN NEGATIVE; URINE MARIJUANA (THC) SCREEN NEGATIVE; URINE METHADONE SCREEN NEGATIVE; URINE PHENCYCLIDINE SCREEN NEGATIVE
--- NOTE | 2018-11-17 09:53 | ER Document Report ---
Doctor's Note Notes: 11/17/18 09:51 Rounds: Chart reviewed. Patient sleeping soundly so not awakened. Patient with a history of schizophrenia. Also blind. Labs unremarkable except for positive leukocyte esterase and urine. A urine culture was ordered. No antibiotics started. Vital signs are all essentially normal. Patient appears to be medically stable for transfer or discharge. Michi Hernandez MD
[2018-11-17] MEDS: OLANZAPINE 5 MG TABLET PO SCH (22:06)
[2018-11-17] MEDS: LORAZEPAM 0.5 MG TABLET PO PRN (22:19)
--- NOTE | 2018-11-18 10:12 | ER Document Report ---
Doctor's Note Notes: 11/18/18 10:17 Patient's history and current situation was reviewed in the chart. He was here in the emergency room for 11 days in October from 10/31 through 11/10/2018. He returned on 11/15/2018. He does not want to take his medications for his psychiatric illness. Apparently he is his own legal guardian and can make those decisions. The place he was living requested he not come back because of his behavior. His sister does not want him to come back into their house because of his behavior problems. He is currently waiting on discharge planning to find somewhere for him to live.
[2018-11-18] MEDS: BENZTROPINE MESYLATE 1 MG TABLET PO SCH (10:17)
[2018-11-18] MEDS: OLANZAPINE 5 MG TABLET PO SCH (22:39)
[2018-11-18] MEDS: LORAZEPAM 0.5 MG TABLET PO PRN (22:40)
--- NOTE | 2018-11-19 10:19 | ER Document Report ---
Doctor's Note Notes: 11/19/18 10:17 Rounds: Chart reviewed and patient interviewed. Patient has a diagnosis of schizophrenia and is also blind. Has been in this emergency department since November 15. Patient has no complaints. Vital signs are all essentially normal. Lab studies were normal with exception of his urine showing possible infection, but the culture shows greater than 100,000 mixed skin mango, which I doubt is due to a UTI and we will not treated as such. Patient appears to be medically stable for transfer or discharge. Patient is currently being held awaiting placement at another long-term facility. Michi Hernandez MD
[2018-11-19] MEDS: BENZTROPINE MESYLATE 1 MG TABLET PO SCH (10:33)
[2018-11-19] MEDS: OLANZAPINE 5 MG TABLET PO SCH (22:55)
[2018-11-19] MEDS: LORAZEPAM 0.5 MG TABLET PO PRN (22:55)
--- NOTE | 2018-11-20 08:47 | ER Document Report ---
ED Medical Screen (RME) - General Chief Complaint: Psych Problem Stated Complaint: IVC Time Seen by Provider: 11/15/18 22:24 Primary Care Provider: SUZANNA KINNEY PA-C [Primary Care Provider] - Follow up as needed Notes: Patient evaluated by me. He is awake and alert, does not seem to be acutely psychotic and has no acute complaints. Dispel per psychiatry. TRAVEL OUTSIDE OF THE [place] IN LAST 30 DAYS: No - Related Data Allergies/Adverse Reactions: No Known Allergies Allergy (Verified 11/15/18 22:05) Past Medical History - Social History Frequency of alcohol use: None Drug Abuse: None Neurological Medical History: Reports: Hx Migraine Renal/ Medical History: Denies: Hx Peritoneal Dialysis Physical Exam - Vital signs Vitals: Temp Pulse Resp BP Pulse Ox 98.4 F 77 20 141/87 H 100 11/15/18 22:54 11/15/18 22:54 11/15/18 22:54 11/15/18 22:54 11/15/18 22:54 Course - Vital Signs Vital signs: Temp Pulse Resp BP Pulse Ox 97.3 F 87 16 117/83 100 11/20/18 03:25 11/20/18 03:25 11/20/18 03:25 11/20/18 03:25 11/20/18 03:25 - Laboratory Result Diagrams: 11/15/18 23:06 11/15/18 23:06 Laboratory results interpreted by me: 11/15/18 11/15/18 11/16/18 23:06 23:06 09:21 RBC 3.96 L Hgb 12.2 L Hct 36.7 L Urine Ketones 20 H Urine Urobilinogen 2.0 H Ur Leukocyte Esterase MODERATE H Salicylates < 1.0 L Acetaminophen < 10 L Doctor's Discharge - Discharge Clinical Impression: Depressed Qualifiers: Depression Type: unspecified Qualified Code(s): F32.9 - Major depressive disorder, single episode, unspecified Condition: Stable Disposition: PSYCH HOSP/UNIT Referrals: SUZANNA KINNEY PA-C [Primary Care Provider] - Follow up as needed
[2018-11-20] MEDS: BENZTROPINE MESYLATE 1 MG TABLET PO SCH (09:50)
[2018-11-20] MEDS: OLANZAPINE 5 MG TABLET PO SCH (22:07)
[2018-11-21] MEDS: BENZTROPINE MESYLATE 1 MG TABLET PO SCH (09:22)
--- NOTE | 2018-11-21 10:40 | ER Document Report ---
Doctor's Note Notes: 11/21/18 10:38 Patient seen and examined. Chart reviewed. Patient has no acute complaints or concerns. Currently awaiting placement. He states he has been eating well here. States he has been taking his medication. Report has been from nursing that he has been taking the medication and they have been finding it on the floor, in the garbage can, etc. Head is normocephalic and atraumatic. Heart is regular rate and rhythm, lungs are clear to auscultation bilaterally. Patient is cooperative with examiner, appropriate, normal affect. Continued medication noncompliance continues to be an issue. Changing patient Zyprexa to Zydis. Still awaiting placement. We will continue to follow.
--- NOTE | 2018-11-22 09:19 | ER Document Report ---
Doctor's Note Notes: 11/22/18 09:18 This is a 63-year-old blind man with a history of schizophrenia that was initially brought to the emergency room because of suicidal thoughts. Patient was evaluated by psychiatry and eventually cleared for discharge. His labs have been essentially unremarkable other than some white cells in the urine. Urine culture revealed skin mango only. Vital signs have been stable and he is been afebrile during his ER encounter. Eventually, family would not accept him home and he thus became a penitentiary issue. He is currently waiting placement. On exam, the patient is ambulatory and in no distress. We will continue to follow. 11/22/18 17:41
[2018-11-22] MEDS: BENZTROPINE MESYLATE 1 MG TABLET PO SCH (09:34)
[2018-11-22] MEDS: OLANZAPINE 5 MG TAB.RAPDIS PO SCH (22:39)
[2018-11-23] MEDS: BENZTROPINE MESYLATE 1 MG TABLET PO SCH (09:32)
[2018-11-23] MEDS: OLANZAPINE 5 MG TAB.RAPDIS PO SCH (09:32)
[2018-11-24] MEDS: OLANZAPINE 5 MG TAB.RAPDIS PO SCH (09:05)
[2018-11-24] MEDS: BENZTROPINE MESYLATE 1 MG TABLET PO SCH (09:05)
--- NOTE | 2018-11-24 10:32 | ER Document Report ---
Doctor's Note Notes: 11/24/18 10:30 Rounds: Chart reviewed and patient interviewed. Patient has been a resident in this emergency department since November 15, nine days. Patient has no complaints. He has a history of schizophrenia and also being depressed. Vital signs are all normal. No new labs to review. Patient is awaiting a bed at an extended care facility. Patient appears to be medically stable for transfer or discharge. Michi Hernandez MD
[2018-11-25] MEDS: OLANZAPINE 5 MG TAB.RAPDIS PO SCH (10:22)
[2018-11-25] MEDS: BENZTROPINE MESYLATE 1 MG TABLET PO SCH (10:22)
--- NOTE | 2018-11-25 21:41 | ER Document Report ---
Doctor's Note Notes: 11/25/18 21:40 Patient seen. No complaints. Will continue to follow
--- NOTE | 2018-11-26 09:24 | ER Document Report ---
Doctor's Note Notes: 11/26/18 09:24 Patient is awaiting a bed at a long-term care facility. Vital signs are stable. No complaints currently.
[2018-11-26] MEDS: OLANZAPINE 5 MG TAB.RAPDIS PO SCH (10:09)
[2018-11-26] MEDS: BENZTROPINE MESYLATE 1 MG TABLET PO SCH (10:09)
--- NOTE | 2018-11-27 09:40 | ER Document Report ---
Doctor's Note Notes: 11/27/18 09:38 This 63-year-old schizophrenic patient has been here in the emergency room since 11/15/2018 waiting for long-term placement. I reviewed the chart, I have been in and spoke with the patient this morning. He is alert, oriented, pleasant. He is looking forward to getting a long-term solution to his living situation. He is medically stable for transfer or discharge at this time.
[2018-11-27] MEDS: BENZTROPINE MESYLATE 1 MG TABLET PO SCH (10:06)
[2018-11-27] MEDS: OLANZAPINE 5 MG TAB.RAPDIS PO SCH (10:06)
[2018-11-28] MEDS: OLANZAPINE 5 MG TAB.RAPDIS PO SCH (09:52)
[2018-11-28] MEDS: BENZTROPINE MESYLATE 1 MG TABLET PO SCH (09:59)
--- NOTE | 2018-11-28 17:00 | ER Document Report ---
Doctor's Note Notes: 11/28/18 16:59 Patient was visited again today. He is feeling well but is getting bored just laying around here and would really like to get placement at a facility. Review of the discharge planners notes show that they spoke with Cassandra at [facility], and his paperwork is continuing to be reviewed.
[2018-11-29] MEDS: OLANZAPINE 5 MG TAB.RAPDIS PO SCH (09:16)
[2018-11-29] MEDS: BENZTROPINE MESYLATE 1 MG TABLET PO SCH (09:17)
[2018-11-29] MEDS ORDERED: TUBERCULIN,PURIF.PROT.DERIV. 5 TU/0.1 ML TEST 1 ML VIAL ID ONE (09:50)
--- NOTE | 2018-11-29 09:51 | ER Document Report ---
Doctor's Note Notes: 11/29/18 09:50 The patient continues to do well today. He continues to wait for placement. I was just requested to place a PPD on the patient, which would suggest he will need to be here for another 2-3 days before any facility will accept him.
[2018-11-30] MEDS ORDERED: HALOPERIDOL LACTATE INJ 5 MG/1 ML VIAL IM ONE (05:27)
[2018-11-30] MEDS: OLANZAPINE 5 MG TAB.RAPDIS PO SCH (09:49)
[2018-11-30] MEDS: BENZTROPINE MESYLATE 1 MG TABLET PO SCH (09:49)
--- NOTE | 2018-11-30 10:17 | ER Document Report ---
Doctor's Note Notes: 11/30/18 10:16 Patient seen and evaluated. He is resting comfortably and in no acute distress. He has no current complaints. He was reportedly ordered a PPD test yesterday but refused them. Patient states that he had a TB test placed in his left arm that was negative as an outpatient about 4 months prior. I do not have access to these records and he is not sure what exactly facility he had it placed. Patient is awaiting placement at [facility]iary facility.
[2018-12-01] MEDS: OLANZAPINE 5 MG TAB.RAPDIS PO SCH (11:01)
[2018-12-01] MEDS: BENZTROPINE MESYLATE 1 MG TABLET PO SCH (11:02)
--- NOTE | 2018-12-01 11:12 | ER Document Report ---
Doctor's Note Notes: 12/01/18 11:12 Patient is very delightful this morning stating that he had a good healthy breakfast and was grateful for his food. Patient otherwise voices no complaints at this time resting comfortably in his room. Currently waiting for disposition by our social team
[2018-12-02] MEDS: BENZTROPINE MESYLATE 1 MG TABLET PO SCH (09:26)
[2018-12-02] MEDS: OLANZAPINE 5 MG TAB.RAPDIS PO SCH (09:26)
--- NOTE | 2018-12-02 11:05 | ER Document Report ---
Doctor's Note Notes: 12/02/18 11:04 Social Rounds: Chart reviewed and patient interviewed. Patient has been here in this emergency department now for 2 weeks. Does not have complaints. Trying to find long-term placement for the patient. Vital signs are all essentially normal. No new labs to review. Patient appears to be medically stable for transfer or discharge. Michi Hernandez MD
[2018-12-03] MEDS: OLANZAPINE 5 MG TAB.RAPDIS PO SCH (09:16)
[2018-12-03] MEDS: BENZTROPINE MESYLATE 1 MG TABLET PO SCH (09:16)
--- NOTE | 2018-12-03 09:53 | ER Document Report ---
Doctor's Note Notes: 12/03/18 09:52 Social Rounds: Chart reviewed and patient interviewed. Patient has no complaints. Seems happy. Vital signs all remained normal. No new lab studies to review. Patient is awaiting placement in a long-term care facility. Patient appears to be medically stable for transfer or discharge. Michi Hernandez MD
[2018-12-04] MEDS: OLANZAPINE 5 MG TAB.RAPDIS PO SCH (09:43)
[2018-12-04] MEDS: BENZTROPINE MESYLATE 1 MG TABLET PO SCH (09:43)
--- NOTE | 2018-12-04 10:15 | ER Document Report ---
Doctor's Note Notes: 12/04/18 10:14 Patient seen and evaluated. He is ambulatory with no current issues. He is refusing to shower which nursing is working on. Currently Patient is on a social hold awaiting placement for further care.
--- NOTE | 2018-12-05 10:28 | ER Document Report ---
Doctor's Note Notes: 12/05/18 10:28 This 63-year-old male schizophrenic patient has been in the emergency room almost continuously since 10/31/2018. He is outside in the exercise yard at this time. food services coordinator is still trying to find long-term placement for this patient. For reasons that I have been unable to determine, his evening dose of Zyprexa was changed to a morning dose. He is now been sleeping during the day and staying up all night. The nurse will try to get the pharmacy to undo this problem so that the patient will be awake during the day and can sleep at night.
[2018-12-05] MEDS: BENZTROPINE MESYLATE 1 MG TABLET PO SCH (21:10)
[2018-12-05] MEDS: OLANZAPINE 5 MG TAB.RAPDIS PO SCH (21:11)
--- NOTE | 2018-12-06 09:20 | ER Document Report ---
Doctor's Note Notes: 12/06/18 09:20 63-year-old schizophrenic awaiting placement by social work. In no acute distress. Vital signs are stable.
[2018-12-06] MEDS: OLANZAPINE 5 MG TAB.RAPDIS PO SCH (21:18)
[2018-12-06] MEDS: BENZTROPINE MESYLATE 1 MG TABLET PO SCH (21:18)
--- NOTE | 2018-12-07 10:07 | ER Document Report ---
Doctor's Note Notes: 12/07/18 10:05 Social Rounds: Chart reviewed and patient interviewed. No change in condition. Vital signs are all normal. No new labs to review. I am informed by the nursing staff that court is being held today in the patient's room. Patient appears to be medically stable for transfer or discharge. Cheko Hernandez MD
[2018-12-07] MEDS: BENZTROPINE MESYLATE 1 MG TABLET PO SCH (22:03)
[2018-12-07] MEDS: OLANZAPINE 5 MG TAB.RAPDIS PO SCH (22:03)
--- NOTE | 2018-12-08 09:46 | ER Document Report ---
Doctor's Note Notes: 12/08/18 09:44 Social rounds: Chart reviewed and patient interviewed. Patient has no complaints. Vital signs are all normal. No labs to review. A hearing was held yesterday in which I understand that this patient was made a [place] of the state. Supposedly, this will make it easier to transfer him to another facility, as the patient will not be able to refuse such a move. Patient appears to be medically stable for transfer or discharge. Cheko Hernandez MD
[2018-12-08] MEDS: BENZTROPINE MESYLATE 1 MG TABLET PO SCH (23:22)
[2018-12-08] MEDS: OLANZAPINE 5 MG TAB.RAPDIS PO SCH (23:22)
[2018-12-10] MEDS: BENZTROPINE MESYLATE 1 MG TABLET PO SCH ×2 (00:24→23:14)
[2018-12-10] MEDS: OLANZAPINE 5 MG TAB.RAPDIS PO SCH ×2 (00:25→23:14)
--- NOTE | 2018-12-10 09:53 | ER Document Report ---
Doctor's Note Notes: 12/10/18 09:53 Patient remains in the emergency room on social hold. He has no specific complaints. shared services and outsourcing manager continues to try to find placement for this patient, but to date have been unsuccessful.
--- NOTE | 2018-12-11 18:00 | ER Document Report ---
Doctor's Note Notes: 12/11/18 17:59 An railroad car inspector from [place] was supposed to come by today to review the patient's packet to help with placement. It does not appear that that happened. I will check with the social psychologist tomorrow to find out what is the latest on attempts to place this gentleman. 12/12/18 18:56 I am told the railroad car inspector from [facility] came to see the patient and determined that he does not qualify for long-term care and needs to go to assisted residential living. volunteer services supervisor will continue to make attempts to place the patient. His status is unchanged from the last 2 days.
[2018-12-11] MEDS: BENZTROPINE MESYLATE 1 MG TABLET PO SCH (23:09)
[2018-12-11] MEDS: OLANZAPINE 5 MG TAB.RAPDIS PO SCH (23:09)
[2018-12-12] MEDS: OLANZAPINE 5 MG TAB.RAPDIS PO SCH (22:09)
[2018-12-12] MEDS: BENZTROPINE MESYLATE 1 MG TABLET PO SCH (22:09)
--- NOTE | 2018-12-13 10:10 | ER Document Report ---
Doctor's Note Notes: 12/13/18 10:09 This is a 63-year-old man with a history of schizophrenia that initially presented on November 15 and has ultimately been held in the emergency room for half-way issues. He remains hemodynamically stable. He is without any significant complaints. Social work is on the case.
[2018-12-13] MEDS: OLANZAPINE 5 MG TAB.RAPDIS PO SCH (23:19)
[2018-12-13] MEDS: BENZTROPINE MESYLATE 1 MG TABLET PO SCH (23:20)
--- NOTE | 2018-12-14 10:08 | ER Document Report ---
Doctor's Note Notes: 12/14/18 10:07 Social Rounds: Patient remains the same and unchanged. Has been in this emergency department since November 15. Underlying history of schizophrenia. Also blind. Has no complaints. Vital signs of all been normal. No recent labs to review. Patient appears to be medically stable for transfer or discharge. Cheko Hernandez MD
[2018-12-14] MEDS ORDERED: LORAZEPAM INJ 2 MG/1 ML VIAL IM ONE (21:08)
[2018-12-14] MEDS: BENZTROPINE MESYLATE 1 MG TABLET PO SCH (21:30)
[2018-12-14] MEDS: OLANZAPINE 5 MG TAB.RAPDIS PO SCH (21:31)
[2018-12-15] MEDS ORDERED: TRAZODONE HCL 50 MG TABLET PO ONE (04:02)
--- NOTE | 2018-12-15 09:55 | ER Document Report ---
Doctor's Note Notes: 12/15/18 09:54 Social Rounds: Patient says he is doing well this morning. This is the patient's 1 month anniversary of arrival in our emergency department. He came here on November 15 and is now December 15. He has no complaints this morning. Vital signs are all normal. Still looking for placement for this patient. Patient appears to be medically stable for transfer or discharge. Cheko Hernandez MD
[2018-12-15] MEDS: OLANZAPINE 5 MG TAB.RAPDIS PO SCH (23:28)
[2018-12-15] MEDS: BENZTROPINE MESYLATE 1 MG TABLET PO SCH (23:28)
--- NOTE | 2018-12-16 09:23 | ER Document Report ---
Doctor's Note Notes: 12/16/18 09:23 This is a 63-year-old man with a history of schizophrenia that initially presented on November 15 and has ultimately been held in the emergency room for penitentiary issues. He remains hemodynamically stable. He is without any significant complaints. Social work is on the case. Patient has no complaints at this time. There is been no recent blood work so this was ordered. 12/16/18 11:36 PHYSICAL EXAMINATION: GENERAL: Well-appearing, well-nourished and in no acute distress. HEAD: Atraumatic, normocephalic. ENT: Nares patent NECK: Normal range of motion LUNGS: No respiratory distress Musculoskeletal: Normal range of motion NEUROLOGICAL: Normal speech, normal gait. PSYCH: Normal mood, normal affect. SKIN: Warm, Dry, normal turgor, no rashes or lesions noted.
[2018-12-16 11:55] LABS: ABSOLUTE EOSINOPHILS # (AUTO) 0.1 10^3/uL (0.0-0.6); ABSOLUTE LYMPHOCYTES (AUTO) 2.1 10^3/uL (0.5-4.7); ABSOLUTE MONOCYTES (AUTO) 0.6 10^3/uL (0.1-1.4); ABSOLUTE NEUT (AUTO) 1.3 10^3/uL (1.7-8.2); BASOPHILS % (AUTO) 0.8 % (0-2); EOSINOPHILS % (AUTO) 2.5 % (0-6); HEMATOCRIT 34.3 % (37.9-51.0); HEMOGLOBIN 11.3 g/dL (13.5-17.0); LYMPHOCYTES % (AUTO) 50.4 % (13-45); MEAN CORPUSCULAR HEMOGLOBIN 30.4 pg (27.0-33.4); MEAN CORPUSCULAR HGB CONC 32.8 g/dL (32.0-36.0); MEAN CORPUSCULAR VOLUME 93 fl (80-97); MONOCYTES % (AUTO) 15.4 % (3-13); PLATELET COUNT 180 10^3/uL (150-450); RED CELL DISTRIBUTION WIDTH 14.5 % (11.5-14.0); SEGMENTED NEUTROPHILS % (AUTO) 30.9 % (42-78); TOTAL CELLS COUNTED % (AUTO) 100 %; WHITE BLOOD COUNT 4.2 10^3/uL (4.0-10.5)
[2018-12-16 12:08] LABS: ALANINE AMINOTRANSFERASE 52 U/L (21-72); ALKALINE PHOSPHATASE 64 U/L (38-126); ANION GAP 10 (5-19); ASPARTATE AMINO TRANSFERASE 30 U/L (17-59); BILIRUBIN,DIRECT 0.2 mg/dL (0.0-0.4); BILIRUBIN,TOTAL 0.3 mg/dL (0.2-1.3); BLOOD UREA NITROGEN 14 mg/dL (7-20); CALCIUM 9.5 mg/dL (8.4-10.2); CARBON DIOXIDE 31 mmol/L (22-30); CHLORIDE 104 mmol/L (98-107); CREATINE KINASE 101 U/L (55-170); GLUCOSE 95 mg/dL (75-110); POTASSIUM 4.1 mmol/L (3.6-5.0); SODIUM 144.8 mmol/L (137-145); TOTAL PROTEIN 7.1 g/dL (6.3-8.2)
[2018-12-16] MEDS: BENZTROPINE MESYLATE 1 MG TABLET PO SCH (22:51)
[2018-12-16] MEDS: OLANZAPINE 5 MG TAB.RAPDIS PO SCH (22:51)
--- NOTE | 2018-12-17 12:11 | ER Document Report ---
Doctor's Note Notes: 12/17/18 12:10 This is a 63-year-old man with a history of schizophrenia that initially presented on November 15 and has ultimately been held in the emergency room for [place] [facility] issues. He remains hemodynamically stable. He is without any significant complaints. He is doing push-ups for exercise this morning. Patient has no complaints at this time. There is been no recent blood work so this was ordered. 12/16/18 11:36 PHYSICAL EXAMINATION: GENERAL: Well-appearing, well-nourished and in no acute distress. HEAD: Atraumatic, normocephalic. ENT: Nares patent NECK: Normal range of motion LUNGS: No respiratory distress Musculoskeletal: Normal range of motion NEUROLOGICAL: Normal speech, normal gait. PSYCH: Normal mood, normal affect. SKIN: Warm, Dry, normal turgor, no rashes or lesions noted. Microbiology 11/16/18 09:21 Urine Culture - Final Clean Catch Midstream Mixed Skin. Possible Pathogen Laboratory 11/15/18 11/15/18 11/15/18 22:46 23:06 23:06 WBC 4.7 RBC 3.96 L Hgb 12.2 L Hct 36.7 L MCV 93 MCH 30.9 MCHC 33.3 RDW 13.7 Plt Count 155 Seg Neutrophils % 46.2 Lymphocytes % 39.1 Monocytes % 12.3 Eosinophils % 1.8 Basophils % 0.6 Absolute Neutrophils 2.2 Absolute Lymphocytes 1.8 Absolute Monocytes 0.6 Absolute Eosinophils 0.1 Absolute Basophils 0.0 Sodium 140.4 Potassium 3.7 Chloride 106 Carbon Dioxide 25 Anion Gap 9 BUN 15 Creatinine 0.85 Est GFR ( Amer) > 60 Est GFR (Non-Af Amer) > 60 Glucose 88 POC Glucose 82 Calcium 9.4 Total Bilirubin 0.5 Direct Bilirubin 0.2 Neonat Total Bilirubin Not Reportable Neonat Direct Bilirubin Not Reportable Neonat Indirect Bili Not Reportable AST 22 ALT 29 Alkaline Phosphatase 79 Creatine Kinase Troponin I Total Protein 7.0 Albumin 4.2 Urine Color Urine Appearance Urine pH Ur Specific Newberry Urine Protein Urine Glucose (UA) Urine Ketones Urine Blood Urine Nitrite Urine Bilirubin Urine Urobilinogen Ur Leukocyte Esterase Urine WBC (Auto) Urine RBC (Auto) U Hyaline Cast (Auto) Squamous Epi Cells Auto Urine Mucus (Auto) Urine Ascorbic Acid Salicylates < 1.0 L Urine Opiates Screen Urine Methadone Screen Acetaminophen < 10 L Ur Barbiturates Screen Ur Phencyclidine Scrn Ur Amphetamines Screen U Benzodiazepines Scrn Urine Cocaine Screen U Marijuana (THC) Screen Serum Alcohol < 10 11/16/18 11/16/18 12/16/18 09:21 09:21 11:31 WBC 4.2 RBC 3.70 L Hgb 11.3 L Hct 34.3 L MCV 93 MCH 30.4 MCHC 32.8 RDW 14.5 H Plt Count 180 Seg Neutrophils % 30.9 L Lymphocytes % 50.4 H Monocytes % 15.4 H Eosinophils % 2.5 Basophils % 0.8 Absolute Neutrophils 1.3 L Absolute Lymphocytes 2.1 Absolute Monocytes 0.6 Absolute Eosinophils 0.1 Absolute Basophils 0.0 Sodium Potassium Chloride Carbon Dioxide Anion Gap BUN Creatinine Est GFR ( Amer) Est GFR (Non-Af Amer) Glucose POC Glucose Calcium Total Bilirubin Direct Bilirubin Neonat Total Bilirubin Neonat Direct Bilirubin Neonat Indirect Bili AST ALT Alkaline Phosphatase Creatine Kinase Troponin I Total Protein Albumin Urine Color YELLOW Urine Appearance SLIGHTLY-CLOUDY Urine pH 6.0 Ur Specific Newberry 1.025 Urine Protein NEGATIVE Urine Glucose (UA) NEGATIVE Urine Ketones 20 H Urine Blood NEGATIVE Urine Nitrite NEGATIVE Urine Bilirubin NEGATIVE Urine Urobilinogen 2.0 H Ur Leukocyte Esterase MODERATE H Urine WBC (Auto) 41 Urine RBC (Auto) 6 U Hyaline Cast (Auto) 1 Squamous Epi Cells Auto 2 Urine Mucus (Auto) MANY Urine Ascorbic Acid NEGATIVE Salicylates Urine Opiates Screen NEGATIVE Urine Methadone Screen NEGATIVE Acetaminophen Ur Barbiturates Screen NEGATIVE Ur Phencyclidine Scrn NEGATIVE Ur Amphetamines Screen NEGATIVE U Benzodiazepines Scrn NEGATIVE Urine Cocaine Screen NEGATIVE U Marijuana (THC) Screen NEGATIVE Serum Alcohol 12/16/18 12/16/18 11:31 11:31 WBC RBC Hgb Hct MCV MCH MCHC RDW Plt Count Seg Neutrophils % Lymphocytes % Monocytes % Eosinophils % Basophils % Absolute Neutrophils Absolute Lymphocytes Absolute Monocytes Absolute Eosinophils Absolute Basophils Sodium 144.8 Potassium 4.1 Chloride 104 Carbon Dioxide 31 H Anion Gap 10 BUN 14 Creatinine 0.92 Est GFR ( Amer) > 60 Est GFR (Non-Af Amer) > 60 Glucose 95 POC Glucose Calcium 9.5 Total Bilirubin 0.3 Direct Bilirubin 0.2 Neonat Total Bilirubin Not Reportable Neonat Direct Bilirubin Not Reportable Neonat Indirect Bili Not Reportable AST 30 ALT 52 Alkaline Phosphatase 64 Creatine Kinase 101 Troponin I < 0.012 Total Protein 7.1 Albumin 4.0 Urine Color Urine Appearance Urine pH Ur Specific Newberry Urine Protein Urine Glucose (UA) Urine Ketones Urine Blood Urine Nitrite Urine Bilirubin Urine Urobilinogen Ur Leukocyte Esterase Urine WBC (Auto) Urine RBC (Auto) U Hyaline Cast (Auto) Squamous Epi Cells Auto Urine Mucus (Auto) Urine Ascorbic Acid Salicylates Urine Opiates Screen Urine Methadone Screen Acetaminophen Ur Barbiturates Screen Ur Phencyclidine Scrn Ur Amphetamines Screen U Benzodiazepines Scrn Urine Cocaine Screen U Marijuana (THC) Screen Serum Alcohol
[2018-12-17] MEDS: BENZTROPINE MESYLATE 1 MG TABLET PO SCH (22:43)
[2018-12-17] MEDS: OLANZAPINE 5 MG TAB.RAPDIS PO SCH (22:44)
--- NOTE | 2018-12-18 09:21 | ER Document Report ---
Entered by VINNIE JENKINS SCRIBE 11/23/18 [id number] Acting as scribe for:ANA MARIA PINEDA DO Doctor's Note Notes: 11/23/18 18:50 Patient has no complaints. States that he spoke with a social services designee for social insurance analyst he states that they might have a place for him to stay. Patient slept well overnight. PHYSICAL EXAM GENERAL: Alert, interacts well. No acute distress. HEAD: Normocephalic, atraumatic. 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 NECK: Full range of motion. Supple. Trachea midline. LUNGS: Clear to auscultation bilaterally, no wheezes, rales, or rhonchi. No respiratory distress. HEART: Regular rate and rhythm. No murmurs, gallops, or rubs. EXTREMITIES: Moves all 4 extremities spontaneously. No edema, radial and dorsalis pedis pulses 2/4 bilaterally. No cyanosis. NEUROLOGICAL: Alert and oriented x3. Normal speech. PSYCH: Normal affect, normal mood. SKIN: Warm, dry, normal turgor. No rashes or lesions noted. I personally performed the services described in the documentation, reviewed and edited the documentation which was dictated to the scribe in my presence, and it accurately records my words and actions.
--- NOTE | 2018-12-18 10:39 | ER Document Report ---
Entered by DION ESTRADA SCRIBE 12/18/18 [id number] Acting as scribe for:ANA MARIA PINEDA DO Doctor's Note Notes: 12/18/18 10:02 Medical rounds: Patient is awaiting placement. Patient is pleasant, states he has a mild sore throat but denies any other complaints. PHYSICAL EXAM GENERAL: Alert, interacts well. No acute distress. HEAD: Normocephalic, atraumatic. 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 ENT: Oral mucosa moist, tongue midline. NECK: Full range of motion. Supple. Trachea midline, not enlarged LUNGS: Clear to auscultation bilaterally, no wheezes, rales, or rhonchi. No respiratory distress. HEART: Regular rate and rhythm. No murmurs, gallops, or rubs. EXTREMITIES: Moves all 4 extremities spontaneously. No edema, radial and dorsalis pedis pulses 2/4 bilaterally. No cyanosis. NEUROLOGICAL: Alert and oriented x3. Normal speech. PSYCH: Normal affect, normal mood. SKIN: Warm, dry, normal turgor. Aware that we are still seeking a stable and safe living situation for him. Patient states his primary care physician is Dr. Benites, states he has no chronic medical problems, but gives me permission to call him to confirm this and to check for any chronic medications he should be taking. 12/18/18 13:[address] Benites that he is not taking any other chronic medications at home aside from Ativan and Zyprexa. Ativan has not been continued here, nor is it needed for anxiety or agitation here. He did not show any signs of benzo withdrawal here. Glaucoma eyedrops appear to have been discontinued in 2017. 12/18/18 13:20 I personally performed the services described in the documentation, reviewed and edited the documentation which was dictated to the scribe in my presence, and it accurately records my words and actions.
[2018-12-18] MEDS: OLANZAPINE 5 MG TAB.RAPDIS PO SCH (21:45)
[2018-12-18] MEDS: BENZTROPINE MESYLATE 1 MG TABLET PO SCH (21:45)
--- NOTE | 2018-12-19 10:10 | ER Document Report ---
Doctor's Note Notes: 12/19/18 10:04 Patient is up in the hallway right now. He is in no distress. He is essentially unchanged from the last several weeks. The latest attempt to find him placement was unsuccessful, the social services assistant nurse reports she has feelers out to several more facilities and is hoping to have success at 1 of them.
[2018-12-19] MEDS: OLANZAPINE 5 MG TAB.RAPDIS PO SCH (22:54)
[2018-12-19] MEDS: BENZTROPINE MESYLATE 1 MG TABLET PO SCH (22:54)
[2018-12-20] MEDS: OLANZAPINE 5 MG TAB.RAPDIS PO SCH (22:40)
[2018-12-20] MEDS: BENZTROPINE MESYLATE 1 MG TABLET PO SCH (22:40)
--- NOTE | 2018-12-21 09:45 | ER Document Report ---
Doctor's Note Notes: 12/21/18 09:44 Social Rounds: Checked in on patient. Has no complaints. Seems to have a positive disposition. Vital signs are all continue to be normal. No labs to review. Patient is awaiting placement for now over a month. Patient appears to be medically stable for transfer or discharge. Cheko Hernandez MD
[2018-12-21] MEDS: OLANZAPINE 5 MG TAB.RAPDIS PO SCH (23:38)
[2018-12-21] MEDS: BENZTROPINE MESYLATE 1 MG TABLET PO SCH (23:38)
--- NOTE | 2018-12-22 10:26 | ER Document Report ---
Doctor's Note Notes: 12/22/18 10:25 Patient seen and examined this morning, patient appears comfortable at this time, he is still pending plan to be sent to long-term living facility, he has been status quo in the emergency department, without any aggressive behaviors, and has been cooperative over the last 24 hours. No complaints in the patient at this time.
[2018-12-22] MEDS: OLANZAPINE 5 MG TAB.RAPDIS PO SCH (21:31)
[2018-12-22] MEDS: BENZTROPINE MESYLATE 1 MG TABLET PO SCH (21:31)
--- NOTE | 2018-12-23 09:57 | ER Document Report ---
Doctor's Note Notes: 12/23/18 09:57 Patient seen and examined, patient appears well this morning, no complaints, pending disposition from the hospital, he is medically stable for transfer or discharge, patient apparently has a complicated social case, and there are several avenues being worked on to have the [facility], to a safe environment.
[2018-12-23] MEDS: OLANZAPINE 5 MG TAB.RAPDIS PO SCH (23:04)
[2018-12-23] MEDS: BENZTROPINE MESYLATE 1 MG TABLET PO SCH (23:04)
--- NOTE | 2018-12-24 17:05 | ER Document Report ---
Doctor's Note Notes: Patient seen and examined in the morning, social patient has been status quo, still pending final disposition, no issues overnight per nursing, no complaints specifically from the patient at this time.
[2018-12-24] MEDS: BENZTROPINE MESYLATE 1 MG TABLET PO SCH (23:11)
[2018-12-24] MEDS: OLANZAPINE 5 MG TAB.RAPDIS PO SCH (23:11)
--- NOTE | 2018-12-25 09:15 | ER Document Report ---
Doctor's Note Notes: 12/25/18 09:45 Patient seen and examined this morning, patient is feeling well, has a good mood, no depressive thoughts, he is anxious to be discharged from the hospital in the emergency room, he has been in the emergency room for over a month, pending placement, due to complex social issues, patient understands this proce ss, he states he has been sleeping well eating well has a good appetite since being on medications is been prescribed while in the ED. Discussed with social, his current disposition, and pending plan.
[2018-12-25] MEDS: BENZTROPINE MESYLATE 1 MG TABLET PO SCH (21:27)
[2018-12-25] MEDS: OLANZAPINE 5 MG TAB.RAPDIS PO SCH (21:28)
--- NOTE | 2018-12-26 09:58 | ER Document Report ---
Doctor's Note Notes: 12/26/18 09:57 Social Rounds: Patient says he is doing well. No complaints. Vital signs normal. Still awaiting placement. Patient has been in this facility since November 15. Cheko Hernandez MD
[2018-12-26] MEDS ORDERED: TUBERCULIN,PURIF.PROT.DERIV. 5 TU/0.1 ML TEST 1 ML VIAL ID ONE ×2 (10:04→11:00)
[2018-12-26] MEDS: OLANZAPINE 5 MG TAB.RAPDIS PO SCH (21:03)
[2018-12-26] MEDS: BENZTROPINE MESYLATE 1 MG TABLET PO SCH (21:04)
--- NOTE | 2018-12-27 10:00 | ER Document Report ---
Doctor's Note Notes: 12/27/18 09:59 Social Rounds: Patient remained stable. Without complaints. Eating well. Positive attitude. Vital signs are all essentially normal. Still awaiting some placement for this patient. Patient appears to be medically stable for transfer or discharge. Cheko Hernandez MD
[2018-12-27] MEDS: OLANZAPINE 5 MG TAB.RAPDIS PO SCH (22:57)
[2018-12-27] MEDS: BENZTROPINE MESYLATE 1 MG TABLET PO SCH (22:57)
--- NOTE | 2018-12-28 09:31 | ER Document Report ---
Doctor's Note Notes: 12/28/18 09:30 ED Rounds: Patient remained stable. Without complaints. Eating well. Positive attitude. Vital signs are all essentially normal. Still awaiting some placement for this patient. Patient appears to be medically stable for transfer or discharge.
[2018-12-28] MEDS: BENZTROPINE MESYLATE 1 MG TABLET PO SCH (23:55)
[2018-12-28] MEDS: OLANZAPINE 5 MG TAB.RAPDIS PO SCH (23:55)
--- NOTE | 2018-12-29 09:28 | ER Document Report ---
Doctor's Note Notes: 12/29/18 09:27 Rounding note he had no needs. Social placement
[2018-12-30] MEDS: BENZTROPINE MESYLATE 1 MG TABLET PO SCH ×2 (01:53→23:16)
[2018-12-30] MEDS: OLANZAPINE 5 MG TAB.RAPDIS PO SCH ×2 (01:53→23:16)
--- NOTE | 2018-12-30 10:14 | ER Document Report ---
Doctor's Note Notes: 12/30/18 10:13 Social Rounds: Patient being held, awaiting placement at some long-term facility. Patient has been an emergency department patient since November 23. Vital signs are all normal. No labs to review. Patient appears to be medically stable for transfer or discharge. Cheko Hernandez MD
--- NOTE | 2018-12-31 09:23 | ER Document Report ---
Doctor's Note Notes: 12/31/18 09:21 Social Rounds: Chart reviewed. Patient is currently sleeping and I am not going to disturb him. He has now been in our facility since November 15. He has had no complaints in the recent days or weeks. Vital signs all remained normal. Patient is awaiting placement in a long-term stay facility. Patient appears to be medically stable for transfer or discharge. Cheko Hernandez MD
[2018-12-31] MEDS: BENZTROPINE MESYLATE 1 MG TABLET PO SCH (22:44)
[2018-12-31] MEDS: OLANZAPINE 5 MG TAB.RAPDIS PO SCH (22:44)
--- NOTE | 2019-01-01 09:22 | ER Document Report ---
Doctor's Note Notes: 01/01/19 09:22 Patient has been here since November 15. Vital signs are stable. No acute overnight events. Awaiting social work disposition.
[2019-01-01] MEDS: OLANZAPINE 5 MG TAB.RAPDIS PO SCH (22:44)
[2019-01-01] MEDS: BENZTROPINE MESYLATE 1 MG TABLET PO SCH (22:44)
--- NOTE | 2019-01-02 09:44 | ER Document Report ---
Doctor's Note Notes: 01/02/19 09:44 63-year-old male being held for social situation secondary to family's inability to care for the patient. Still awaiting social disposition. Vital signs are stable. Patient is being taken out daily to be in the sun. No acute complaints or activity overnight.
[2019-01-02] MEDS: BENZTROPINE MESYLATE 1 MG TABLET PO SCH (22:46)
[2019-01-02] MEDS: OLANZAPINE 5 MG TAB.RAPDIS PO SCH (22:46)
[2019-01-03 08:24] VITALS: BP 100/59
== END 2019-01-03 09:06 | disposition home health service (06) ==
LOC: ER 21:40 → EH 21:40 → ER 11-23 16:40
DX: F20.9 Schizophrenia, unspecified (principal); F32.9 Major depressive disorder, single episode, unspecified; R45.851 Suicidal ideations; R45.850 Homicidal ideations; F17.200 Nicotine dependence, unspecified, uncomplicated; Z75.1 Person awaiting admission to adequate facility elsewhere; J02.9 Acute pharyngitis, unspecified; H54.7 Unspecified visual loss; Z79.899 Other long term (current) drug therapy; Z63.8 Other specified problems related to primary support group
CPT/HCPCS: 93005; 99285; 96372; 36415; 87086; 82962; 80307 ×4; 82550; 85025; 80053; 81001; 84484; 70450; 93010; A9270 ×90; J1630; J2060; J3490

== ENCOUNTER 2019-09-23 20:32 | Emergency (ER) | payer MEDICARE, MEDICAID ==
[2019-09-23 20:50] VITALS: BP 141/93
--- NOTE | 2019-09-23 21:52 | ER Document Report ---
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 EMS reports that they were called out to the patient's residence because the patient was "throwing tables and having an outburst". ED nurse reports that patient has been off of all of his medications for the past x2-3 weeks and that the patient has a significant psychiatric history. Patient denies any other symptoms. TRAVEL OUTSIDE OF THE [place] IN LAST 30 DAYS: No - Related Data Allergies/Adverse Reactions: No Known Allergies Allergy (Verified 12/26/18 08:06) Home Medications: Olazapine. Finasteride. Seroquel. Chlorpromazine. Depakote. Tomazepam Past Medical History - General Information source: Patient, [facility] Records - Social History Smoking Status: Unknown if Ever Smoked Cigarette use (# per day): No Chew tobacco use (# tins/day): No Smoking Education Provided: No Family History: Reviewed & Not Pertinent Patient has suicidal ideation: No Patient has homicidal ideation: No Neurological Medical History: Reports: Hx Migraine Review of Systems - Review of Systems Constitutional: No symptoms reported EENT: No symptoms reported Cardiovascular: No symptoms reported Respiratory: No symptoms reported Gastrointestinal: No symptoms reported Genitourinary: No symptoms reported Male Genitourinary: See HPI, Other - Scratches Musculoskeletal: No symptoms reported Skin: No symptoms reported Hematologic/Lymphatic: No symptoms reported Neurological/Psychological: No symptoms reported -: Yes All other systems reviewed and negative Physical Exam - Vital signs Vitals: Temp Pulse Resp BP Pulse Ox 97.7 F 86 16 141/93 H 100 09/23/19 20:48 09/23/19 20:48 09/23/19 20:48 09/23/19 20:48 09/23/19 20:48 - General General appearance: Appears well, Alert - HEENT Head: Normocephalic, Atraumatic Eyes: Normal Pupils: PERRL - Respiratory Respiratory status: No respiratory distress Chest status: Nontender Breath sounds: Normal Chest palpation: Normal - Cardiovascular Rhythm: Regular Heart sounds: Normal auscultation Murmur: No - Abdominal Inspection: Normal Distension: No distension Bowel sounds: Normal Tenderness: Nontender - Abdomen soft Organomegaly: No organomegaly - Genitourinary Tenderness: Other - Redness and irritation to perineum on the left side. Appears to be a mild excoriation. - Back Back: Normal, Nontender - Extremities General upper extremity: Normal inspection General lower extremity: Normal inspection - Neurological Neuro grossly intact: Yes - Psychological Associated symptoms: Normal affect, Normal mood - Skin Skin Temperature: Warm Skin Moisture: Dry Skin Color: Normal Course - Re-evaluation Re-evalutation: 09/23/19 22:14 Results of ED MSE discussed with patient. All questions were answered. Emergency signs and symptoms, reasons to return to the emergency department discussed with the patient. - Vital Signs Vital signs: Temp Pulse Resp BP Pulse Ox 97.7 F 86 16 141/93 H 100 09/23/19 20:48 09/23/19 20:48 09/23/19 20:48 09/23/19 20:48 09/23/19 20:48 Discharge - Discharge Clinical Impression: Skin excoriation Condition: Good Disposition: HOME, SELF-CARE Additional Instructions: Return to the Emergency Department without delay if any worse. HOME CARE INSTRUCTIONS & INFORMATION: Thank you for choosing us for your medical needs. We hope you're satisfied with the care you received. After you leave, you must properly care for your problem and, at the same time, observe its progress. Any condition can change. Some illnesses can change rapidly over hours or days. If your condition worsens, return to the Emergency Department or see your physician promptly. ABOUT YOUR X-RAYS AND EKG'S: If you had an EKG or X-rays taken, they have been read by the Emergency Physician. The X-rays and EKG's will also be read by a Radiologist or Assembly Inspector within 24 hours. If discrepancies are noted, you will be notified by telephone. Please be certain the ED has a correct telephone number & address where you can be reached. Also, realize that some fractures or abnormalities do not show up on initial X-rays. If your symptoms continue, see your physician. ABOUT YOUR LABORATORY TEST: If you had laboratory tests, the results have been reviewed by the Emergency Physician. Some test results (for example cultures) may not be available for several days. You will be contacted if any test result shows you need additional treatment. Please be certain the ED has a correct telephone number and address where you can be reached. ABOUT YOUR MEDICATIONS: You will receive instructions on how to take your medicine on the prescription label you receive. Additional information may be provided by the Pharmacy. If you have questions afterwards, call the ED for clarification or further instructions. Some prescribed medications may cause drowsiness. Do not perform tasks such as driving a car or operating machinery without consulting your Pharmacist. If you feel you need a refill of pain medication, your condition will need re-evaluation. Please do not call for a refill of any medication. ABOUT YOUR SIGNATURE: Signature of this document acknowledges to followin. Understanding that you received emergency treatment and that you may be released before al medical problems are known or treated. Please be certain the ED has a correct phone number & address where you can be reached. 2. Acknowledgement that you will arrange for follow-up care as recommended. 3. Authorization for the Emergency Physician to provide information to your follow-up Physician in order to maximize your care. AT ANY TIME, IF YOUR SYMPTOMS CHANGE SIGNIFICANTLY OR WORSEN OR YOU DEVELOP NEW SYMPTOMS, RETURN TO THE EMERGENCY DEPARTMENT IMMEDIATELY FOR RE-EVALUATION. OUR GOAL IS TO PROVIDE EXCELLENT MEDICAL CARE! WE HOPE THAT WE HAVE MET YOUR EXPECTATIONS DURING YOUR EMERGENCY DEPARTMENT VISIT AND THAT YOU FEEL YOU HAVE RECEIVED EXCELLENT CARE! Prescriptions: Nystatin [Mycostatin Cream 15 gm] 1 applic TP BID 10 Days #15 gm Referrals: SUZANNA KINNEY PA-C [NO LOCAL MD] - Follow up as needed I personally performed the services described in the documentation, reviewed and edited the documentation which was dictated to the scribe in my presence, and it accurately records my words and actions.
[2019-09-23] MEDS ORDERED: NYSTATIN CREAM 15 GM TP ONE (22:04)
== END 2019-09-23 22:39 | disposition home or self-care (01) ==
LOC: ER 20:32
DX: S30.811A Abrasion of abdominal wall, initial encounter (principal); X58.XXXA Exposure to other specified factors, initial encounter; Z79.899 Other long term (current) drug therapy
CPT/HCPCS: J3490

== ENCOUNTER 2019-09-29 11:39 | Emergency (ER) | payer MEDICARE, MEDICAID ==
--- NOTE | 2019-09-29 14:57 | ER Document Report ---
HPI - HPI Time Seen by Provider: 09/29/19 14:31 Pain Level: Denies Context: Patient is a 63-year-old male who presents to the emergency department with no specific complaints. He was in a custodial and he states that he does not want to be at the custodial anymore. He states that he wants to go to [facility] because he "wants to be in a safe environment." See course about comments from oncology social worker. [facility]. He has not been taking his medications. - ROS ROS Unobtainable: Yes ROS unobtainable due to patient's medical condition - REPRODUCTIVE Reproductive: DENIES: : Past Medical History - Social History Smoking Status: Current Every Day Smoker Chew tobacco use (# tins/day): No Frequency of alcohol use: None Drug Abuse: None Family History: Reviewed & Not Pertinent Patient has suicidal ideation: No Patient has homicidal ideation: No Neurological Medical History: Reports: Hx Migraine Renal/ Medical History: Denies: Hx Peritoneal Dialysis Vertical Provider Document - CONSTITUTIONAL Agree With Documented VS: Yes Notes: PHYSICAL EXAMINATION: GENERAL: Appears well, healthy, well-nourished, no acute distress. HEAD: Normocephalic, atraumatic. EYES: PERRL, conjunctiva normal, all extraocular movements intact, sclera nonicteric ENT: Moist mucous membranes. NECK: Supple, no noticeable swelling, redness, rash. Normal range of motion. LUNGS: Equal breath sounds bilaterally and clear to auscultation. No wheezes rales or rhonchi. CARDIOVASCULAR: S1-S2, regular rate, regular rhythm. Radial pulses 2+, normal. ABDOMEN: Normoactive bowel sounds. Soft, nontender, no guarding, no rebound tenderness, and no masses palpated. EXTREMITIES: Normal strength and range of motion, no pitting or edema. No cyanosis. NEUROLOGICAL: Moves all extremities upon command. Strength 5/5 in all extremities. Nystagmus noted, with which appears to be chronic. PSYCH: Withdrawn, not very talkative. SKIN: Warm, dry. No rash, lesions, ulcerations noted. Normal skin turgor. - INFECTION CONTROL TRAVEL OUTSIDE OF THE [place] IN LAST 30 DAYS: No Course - Re-evaluation Re-evalutation: 09/29/19 14:59 I spoke with the oncology social worker pediatric nurse practitioner. They will contact the state to develop a plan of care. 09/29/19 15:08 I was able to speak with Anahy Galaviz, the on-call oncology social worker who spoke with Lissy, the EPS supervisor beater room who states that the patient has not been taking his medications for the past 2 weeks. Apparently mobile prior crisis has been called multiple times the past couple of weeks because the patient has not been taking his medications. 09/29/19 19:45 Patient hematology shows anemia, which is chronic, as his last hemoglobin was 11.3 back in December 2018. Chemistries are unremarkable. Urinalysis shows a mild amount of leukocytes in his urine. He also has trace bacteria and 21 WBCs noted in his urinalysis. He will be placed on Keflex starting tomorrow. He will receive a dose of Rocephin here in the emergency department. Urine drug screen, salicylates, acetaminophen, and serum alcohol are all negative. At this time, the patient is medically cleared for mental health evaluation. I have asked the staff to get his home medications from his custodial. - Vital Signs Vital signs: Temp Pulse Resp BP Pulse Ox 97.9 F 95 16 145/87 H 98 09/29/19 12:05 09/29/19 12:05 09/29/19 12:05 09/29/19 12:05 09/29/19 12:05 - Laboratory Result Diagrams: 09/29/19 15:38 09/29/19 15:38 - EKG Interpretation by Me Additional EKG results interpreted by me: 09/29/19 16:39 Sinus rhythm. Rate 77. OK 168; QRS 76; QT 396; QTc 449. No ST elevations or depressions noted. Discharge - Discharge Clinical Impression: Urinary tract infection Qualifiers: Hematuria presence: without hematuria Condition: Stable Disposition: PSYCH HOSP/UNIT Referrals: CHICHI GALARZA MD [Primary Care Provider] - Follow up as needed
[2019-09-29 16:09] LABS: ALBUMIN 4.2 g/dL (3.5-5.0); ALKALINE PHOSPHATASE 58 U/L (38-126); ANION GAP 8 (5-19); ASPARTATE AMINO TRANSFERASE 21 U/L (17-59); BILIRUBIN,DIRECT 0.3 mg/dL (0.0-0.4); BILIRUBIN,TOTAL 0.6 mg/dL (0.2-1.3); BLOOD UREA NITROGEN 8 mg/dL (7-20); CALCIUM 9.6 mg/dL (8.4-10.2); CARBON DIOXIDE 32 mmol/L (22-30); CHLORIDE 102 mmol/L (98-107); GLUCOSE 128 mg/dL (75-110); POTASSIUM 3.9 mmol/L (3.6-5.0); TOTAL PROTEIN 7.5 g/dL (6.3-8.2)
[2019-09-29 16:11] LABS: ACETAMINOPHEN < 10 ug/mL (10-30); ALCOHOL < 10 mg/dL (NONE DETECTED); SALICYLATE < 1.0 mg/dL (2.0-20.0)
[2019-09-29 16:16] LABS: ABSOLUTE LYMPHOCYTES (AUTO) 1.8 10^3/uL (0.5-4.7); ABSOLUTE MONOCYTES (AUTO) 0.4 10^3/uL (0.1-1.4); ABSOLUTE NEUT (AUTO) 1.4 10^3/uL (1.7-8.2); BASOPHILS % (AUTO) 0.6 % (0-2); HEMOGLOBIN 12.6 g/dL (13.5-17.0); LYMPHOCYTES % (AUTO) 48.5 % (13-45); MEAN CORPUSCULAR HEMOGLOBIN 31.9 pg (27.0-33.4); MEAN CORPUSCULAR HGB CONC 34.2 g/dL (32.0-36.0); MEAN CORPUSCULAR VOLUME 93 fl (80-97); MONOCYTES % (AUTO) 11.9 % (3-13); PLATELET COUNT 215 10^3/uL (150-450); RED BLOOD COUNT 3.96 10^6/uL (4.35-5.55); RED CELL DISTRIBUTION WIDTH 13.7 % (11.5-14.0); TOTAL CELLS COUNTED % (AUTO) 100 %; WHITE BLOOD COUNT 3.7 10^3/uL (4.0-10.5)
[2019-09-29 17:08] LABS: APPEARANCE,URINE SLIGHTLY-CLOUDY; BILIRUBIN,URINE NEGATIVE (NEGATIVE); COLOR,URINE YELLOW; GLUCOSE, URINE NEGATIVE (NEGATIVE); KETONES,URINE NEGATIVE (NEGATIVE); LEUKOCYTE ESTERASE,URINE MODERATE (NEGATIVE); NITRITE,URINE NEGATIVE (NEGATIVE); PROTEIN,URINE NEGATIVE (NEGATIVE); URINE SPECIFIC GRAVITY 1.009
--- NOTE | 2019-09-29 17:16 | PSYCHOLOGICAL NOTE ---
Psych Note - Psych Note Date seen by psych provider: 09/29/19 Time seen by psych provider: 16:30 Psych Note: Patient is a 63 year old male who presents to the ED via EMS. Patient is a resident of [facility]. Patient has been noncompliant with medications and has been acting out behaviorally (smoking inside, barricading himself in his room, and throwing things from his room). Patient states he does not feel safe at [facility]. When asked why patient does not feel safe at [facility], patient replied "the environment of his room and the food." When asked to elaborate, patient states he can't sleep in his room. Patient requests to go to [facility]. Clinician informed patient that is not a possibility. Patient was informed he would be here in the ED under an IVC petition until he is stabilized on his medication, and then returned to [facility]. Patient was informed that while on IVC, he cannot refuse medications. Patient verbalized understanding. Patient was encouraged to speak with Deejay once he returns to [facility] if he desires to change assisted living facilities. Patient denies suicidal and homicidal ideations. Obtained Collateral from [facility] DSS/APS worker Deejay Mayes ([phone]) from [phone]. DSS/APS had been legal guardian since January 05, 2020. Patient has been living at [facility] since March 2019 and had lived there previously. [facility] Guardian noted patient ran out of Seroquel medication back in August 2019 for a week, then [facility] got it back in stock, patient started refusing all medications, would take them on and off and would pick through them taking the ones he wanted (DSS Guardian said the mobile psych [facility] provider was able to talk patient into taking medications when she was at [facility] yesterday and today it took DSS worker 15 minutes to get patient to take medication). She stated he has been smoking inside, increased aggression (throwing tables and his top mattress), has barricaded himself in his bedroom with a dresser pushed against the door and door locked, he has been refusing to go to his [facility], he has stopped eating because he doesn't trust the hand that feeds him, and has not had a bath or change of clothes in a week because he says he doesn't have any clean clothes (but has 2 bags full of clean clothes). She noted [facility] MCM has had to go to the longterm the last two weekends. He has a history of Schizophrenia. His outpatient mental health provider is Chloe Cook at [facility] who made a mobile psych visit to [facility] yesterday. SILVIA kochan asked the mental health provider yesterday about shot form medication and provider said he would have to agree to it. Patients medications are: Seroquel, Thorazine, Zyprexa and Depakote. 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 She noted patient saw [facility] Dr. Hutchison 09/20/2019. SILVIA Kochan reported the past two days whether in person or on the phone patient has said he doesn't want to go to [facility] (had been there 20 years ago or so) and that was how she p ersuaded him to take medications earlier today. SILVIA kochan noted patient was seen in [facility] ED around this time last year and ended up going to [facility] in [place] in December 2018. She noted he had another episode of similar behaviors (smoking in smoke free home, destroying property, noncompliant with medications, psychosis), was put on IVC and hospitalized for a month in [place]. Patient was seen my [facility] team in October 2018, was in ED on IVC for 7 days for similar behaviors, discharged to sister at the time, sister brought him back to ED very beginning of November 2018 and he was discharged since he had just been in ED on medications and stabilized. Patient is alert and oriented to person, place, time and circumstance. Mood is normal with congruent affect. Patient denies suicidal and homicidal ideations. Delusions are absent and behavior is congruent with an intact reality based presentation (i.e., organized and linear through processes). There is no observed behavior that suggests patient is responding to internal stimuli. Patient is able to engage in organized, rational thought processes. Patient is able to express needs and wants in a logical manner. Patient denies current auditory and visual hallucinations. Eye contact is appropriate. Conversational speech is within normal rate, tone, and prosody. Intellectual ability appears to be within average range. Attention and concentration are good. Insight, judgment and impulse control are currently poor. Medication recommendations per [facility] contracted psychiatrist Dr. Natasha MD are as follows: Please restart home medications Impression/Plan: Patient is recommended for full IVC. Patient is in need of stabilization on home medications, and the return patient to [facility]. Patient has a history of noncompliance with medications and restabilization at the ED. Dr. Preciado was consulted on the care and management of this patient; attending physician is in agreement with recommendations and disposition.
[2019-09-29 17:27] LABS: URINE AMPHETAMINES SCREEN NEGATIVE; URINE BARBITURATES SCREEN NEGATIVE; URINE BENZODIAZEPINES SCREEN NEGATIVE; URINE COCAINE SCREEN NEGATIVE; URINE MARIJUANA (THC) SCREEN NEGATIVE; URINE METHADONE SCREEN NEGATIVE; URINE PHENCYCLIDINE SCREEN NEGATIVE
[2019-09-29] MEDS ORDERED: NORMAL SALINE 1000 ML 1,000 ML IV ONE (17:44)
[2019-09-29] MEDS ORDERED: CEFTRIAXONE INJ 1000 MG VIAL IV ONE (17:46)
--- NOTE | 2019-09-29 20:37 | EKG REPORT ---
SEVERITY:- NORMAL ECG - SINUS RHYTHM Normal EKG : Confirmed by: Eduard Harris MD 29-Sep-2019 20:36:33
--- NOTE | 2019-09-30 02:18 | ER Document Report ---
Doctor's Note Notes: 09/30/19 02:17 Patient is sleeping at this time no acute distress. Nursing has attempted to call the [facility] jail multiple times to obtain his current medication list as well as his dosing schedule from yesterday prior to them sending the patient in. We have been unsuccessful despite leaving messages to obtain a current active list. As patient is not having any distress at this time will have dayshift attempt to obtain an accurate medication list for the patient as it was apparently not sent in yesterday with the patient
--- NOTE | 2019-09-30 09:30 | ER Document Report ---
Doctor's Note Notes: 09/30/19 09:28 I am rounding on a 63-year-old male who presents from [facility] for noncompliance with meds and behavior outbursts. The nurses still currently working on trying to obtain a medication list for this patient. Patient has no concerns or complaints. Patient states that he is feeling well at this time. He has no SI or HI. He has been eating and drinking without difficulty. He is urinating normally and having normal bowel movements. Lab work was unremarkable. Denies any headache, fever, neck pain, URI, sore throat, chest pain, palpitations, syncope, cough, shortness of breath, wheeze, dyspnea, abdominal pain, nausea/vomiting/diarrhea, urinary retention, dysuria, hematuria, or rash. General: A&Ox4. Answers questions appropriately. Heart: RRR Lungs: CTAB Psych: poor eye contact A/P: Continue monitoring and med rec's per . Waiting on further rec's from team. Normal diet
[2019-09-30] MEDS: CEPHALEXIN 500 MG CAPSULE PO SCH ×2 (09:40→18:18)
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
[2019-09-30] MEDS: OLANZAPINE 5 MG TABLET PO SCH ×2 (13:32→18:17)
[2019-09-30] MEDS: BENZTROPINE MESYLATE 1 MG TABLET PO SCH (13:33)
[2019-09-30] MEDS: FINASTERIDE 5 MG TABLET PO SCH (13:33)
[2019-09-30] MEDS: DIVALPROEX SODIUM 250 MG TAB.SR.24H PO SCH ×2 (13:34→18:17)
[2019-09-30] MEDS: CHLORPROMAZINE HCL 50 MG TABLET PO SCH ×2 (13:35→18:17)
[2019-09-30] MEDS ORDERED: TEMAZEPAM 15 MG CAPSULE PO SCH (22:00)
[2019-09-30] MEDS: QUETIAPINE FUMARATE 100 MG TABLET PO SCH (22:54)
--- NOTE | 2019-09-30 22:55 | ER Document Report ---
Doctor's Note Notes: 09/30/19 22:55 Patient was noted by nursing to have tried to pocket his Seroquel and pills tonight instead of taking them. I discussed this with the patient he states that he does not feel he needs the pills because he is "stable minded". Patient is aware that he was sent in here for this particular reason. Patient is calm and conversive at this time. Nursing will find to me if patient begins to act out and we will administer intramuscular medications if needed
[2019-10-01] MEDS ORDERED: OLANZAPINE INJ/PF 10 MG SDV IM ONE (02:44)
--- NOTE | 2019-10-01 08:40 | PSYCHOLOGICAL NOTE ---
Psych Note - Psych Note Date seen by psych provider: 10/01/19 Time seen by psych provider: 07:40 Psych Note: Reason For Consult: psychosis, behavioral issues, medication noncompliance Check in conducted with patient: Patient spoke appropriately with clinician when discussing how he is currently doing and if he remembers clinician; however is noted to refuse to speak about his medications or his symptoms of mental health. Patient is calm and polite. This patient will well known to clinician and department, his concerns he presented to [facility] ED with and his ongoing behaviours (cheeking medications, responding to internal stimuli with verbal outbursts and needing frequent redirection) are all congruent with known presentation when the patient is off his mediations. Medication recommendations per [facility]'s contracted psychiatrist Dr. Natasha BILLY are as follows Please continue home medications- if there is available IM for a medication, please use as patient is known to cheek medications The patient may benefit from depakene rather than depaoke if he is found to refuse or cheek this pill. Impression\plan:Patient is recommended to continue under IVC. Patient became unstable when his nursing home was unable to provide his medications as directed for a week. Once they were able to provide medications the patient refused. He since has had an increase in behavioral events, has not engaged in self care (ie hygiene), suffers from paranoid delusions that he is being poisoned so refuses food and drink, and has verbal outbursts resulting from responding to internal stimuli. Medication recommendations have been provide to restart patient's home medications that he was maida on prior to not receiving them. Patient is known to cheek medications and it is recommended to the patient receive medications in IM form if available. Dr. Preciado was consulted to care management of this patient; attending physicians in agreement with recommendations and disposition.
--- NOTE | 2019-10-01 09:03 | ER Document Report ---
Doctor's Note Notes: 10/01/19 09:03 Received report. Chart reviewed rounded on patient, ambulating slowly to the bathroom for clean up. No distress, calm PHYSICAL EXAMINATION: GENERAL: Well-appearing and in no acute distress HEAD: Atraumatic, normocephalic. ENT: nares patent, Moist mucous membranes. NECK: Normal range of motion, supple LUNGS: Respiratory rate even unlabored HEART: Regular rate EXTREMITIES: Normal range of motion, ambulates without problems NEUROLOGICAL: Cranial nerves grossly intact. PSYCH: Irritable but calm SKIN: Warm, Dry, normal turgor, no rashes or lesions noted 10/01/19 10:45 Patient is not taking p.o. meds. He is spitting them out in the sink or cheeking them. I consulted pharmacy. Almost all of the p.o. meds were changed to IM. The Depakote was changed to Depakene to be placed in his Gatorade. Seroquel unchanged. 10/01/19 19:25 Patient was calm all day. Picking at lunch and dinner. Still refused p.o. meds. 10/01/19 19:59 Report given to Yemi Nelson NP
[2019-10-01] MEDS: CEPHALEXIN 500 MG CAPSULE PO SCH (10:04)
[2019-10-01] MEDS: DIVALPROEX SODIUM 250 MG TAB.SR.24H PO SCH (10:04)
[2019-10-01] MEDS: CHLORPROMAZINE HCL 50 MG TABLET PO SCH (10:04)
[2019-10-01] MEDS: OLANZAPINE 5 MG TABLET PO SCH (10:04)
[2019-10-01] MEDS: BENZTROPINE MESYLATE 1 MG TABLET PO SCH (10:04)
[2019-10-01] MEDS: FINASTERIDE 5 MG TABLET PO SCH (10:05)
[2019-10-01] MEDS ORDERED: LIDOCAINE 1% INJ-PF (10 MG/ML) 30 ML SDV INJ ONE (10:38)
[2019-10-01] MEDS: OLANZAPINE INJ/PF 10 MG SDV IM SCH (11:21)
[2019-10-01] MEDS: BENZTROPINE MESYLATE INJ 2 MG/2 ML AMPULE IM SCH (11:22)
[2019-10-01] MEDS: CEFTRIAXONE INJ 1000 MG VIAL IM SCH (11:22)
[2019-10-01] MEDS: VALPROATE SODIUM SYRUP 250 MG/5 ML UDCUP PO SCH ×2 (11:22→18:07)
[2019-10-01] MEDS: CHLORPROMAZINE HCL INJ 25 MG/1 ML AMPULE IM SCH (18:08)
[2019-10-01] MEDS: QUETIAPINE FUMARATE 100 MG TABLET PO SCH (21:48)
--- NOTE | 2019-10-02 01:34 | ER Document Report ---
Doctor's Note Notes: 10/02/19 01:34 Patient is resting quietly at this time no distress, respirations are even and unlabored
[2019-10-02] MEDS: CHLORPROMAZINE HCL INJ 25 MG/1 ML AMPULE IM SCH ×2 (10:18→17:27)
[2019-10-02] MEDS: CEFTRIAXONE INJ 1000 MG VIAL IM SCH (10:20)
[2019-10-02] MEDS ORDERED: LIDOCAINE 1% INJ (10 MG/ML) 10 ML MDV ONE (10:21)
[2019-10-02] MEDS: BENZTROPINE MESYLATE INJ 2 MG/2 ML AMPULE IM SCH (10:26)
[2019-10-02] MEDS: OLANZAPINE INJ/PF 10 MG SDV IM SCH (10:28)
[2019-10-02] MEDS: VALPROATE SODIUM SYRUP 250 MG/5 ML UDCUP PO SCH ×2 (10:28→17:27)
--- NOTE | 2019-10-02 19:38 | ER Document Report ---
Doctor's Note Notes: 10/02/19 Chart reviewed patient rounded on. Patient is calm. He is shuffling around his room. Frequently stands at his doorway. He is easily redirected. Respiratory rate even unlabored no distress. Nontoxic looking. PHYSICAL EXAMINATION: GENERAL: Well-appearing and in no acute distress HEAD: Atraumatic, normocephalic. ENT: nares patent, Moist mucous membranes. NECK: Normal range of motion, supple LUNGS: Respiratory rate even unlabored HEART: Regular rate ABDOMEN: No complaints of abdominal pain. Eating and drinking without complaints EXTREMITIES: Normal range of motion NEUROLOGICAL: Cranial nerves grossly intact. PSYCH: Normal mood, normal affect. Calm SKIN: Warm, Dry
[2019-10-02] MEDS: QUETIAPINE FUMARATE 100 MG TABLET PO SCH (21:17)
[2019-10-03] MEDS: VALPROATE SODIUM SYRUP 250 MG/5 ML UDCUP PO SCH ×2 (09:00→10:48)
[2019-10-03] MEDS ORDERED: LIDOCAINE 1% INJ (10 MG/ML) 10 ML MDV INJ ONE (09:24)
[2019-10-03] MEDS: CEFTRIAXONE INJ 1000 MG VIAL IM SCH (09:44)
[2019-10-03] MEDS: CHLORPROMAZINE HCL INJ 25 MG/1 ML AMPULE IM SCH (09:51)
[2019-10-03] MEDS: BENZTROPINE MESYLATE INJ 2 MG/2 ML AMPULE IM SCH (09:57)
[2019-10-03] MEDS: OLANZAPINE INJ/PF 10 MG SDV IM SCH (09:57)
[2019-10-03] MEDS ORDERED: DIVALPROEX SODIUM 125 MG CAP.SPRINK PO ONE (10:22)
--- NOTE | 2019-10-03 11:43 | ER Document Report ---
Doctor's Note Notes: 10/03/19 11:35 PHYSICAL EXAMINATION: GENERAL: Well-appearing and in no acute distress. HEAD: Atraumatic, normocephalic. ENT: nares patent. Moist mucous membranes. NECK: Normal range of motion, supple LUNGS: CTAB and equal. No wheezes rales or rhonchi. HEART: Regular rate and rhythm without murmurs ABDOMEN: Soft, nontender, normal bowel sounds, no guarding. EXTREMITIES: Normal range of motion, no pitting edema. BACK: No midline tenderness, No CVA tenderness PSYCH: Patient with occasional delusions and paranoid thoughts. Patient concerned that food was poisoned SKIN: Warm, Dry, normal turgor, no rashes or lesions noted Patient appears medically clear for transfer. Patient is awaiting transport at this time. 10/03/19 13:05 Transport is here for patient at this time. Patient medically stable for transfer.
[2019-10-03 12:45] VITALS: BP 105/76
[2019-10-03] MEDS ORDERED: DIVALPROEX SODIUM 125 MG CAP.SPRINK PO SCH (18:00)
== END 2019-10-03 13:30 ==
LOC: ER 11:39
DX: F20.9 Schizophrenia, unspecified (principal); T43.596A Underdosing of other antipsychotics and neuroleptics, initial encounter; Z91.128 Patient's intentional underdosing of medication regimen for other reason; Z91.14 Patient's other noncompliance with medication regimen; N39.0 Urinary tract infection, site not specified; F22 Delusional disorders; D64.9 Anemia, unspecified; F17.200 Nicotine dependence, unspecified, uncomplicated
CPT/HCPCS: 93005; 36415; 87086; 80307 ×4; 85025; 87088; 80053; 81001; 87186; 93010; A9270 ×7; J0515; J3230; J3490; J0696 ×2; J7030; 96365; 96372; 99285

== ENCOUNTER 2019-10-26 19:33 | Emergency (ER) | payer MEDICARE, MEDICAID ==
--- NOTE | 2019-10-26 21:04 | ER Document Report ---
ED General - General Chief Complaint: Psych Problem Stated Complaint: PSYCH Time Seen by Provider: 10/26/19 20:37 Primary Care Provider: CHICHI GALARZA MD [Primary Care Provider] - Follow up as needed Notes: 63-year-old male presents from half-way paranoid about the food. Patient states it is "unclean" and states that he thinks that they are putting something in his food. Patient has not eaten in 4 days. Patient has also not been taking his medications. Patient denies any SI, HI, or auditory/visual hallucinations. Patient denies any other complaints. TRAVEL OUTSIDE OF THE [place] IN LAST 30 DAYS: No - Related Data Allergies/Adverse Reactions: No Known Allergies Allergy (Verified 12/26/18 08:06) Home Medications: Pt has list of meds but has not been taking for the past several weeks Past Medical History - Social History Smoking Status: Former Smoker Chew tobacco use (# tins/day): No Frequency of alcohol use: None Drug Abuse: None Family History: Reviewed & Not Pertinent Patient has suicidal ideation: No Patient has homicidal ideation: No Neurological Medical History: Reports: Hx Migraine Renal/ Medical History: Denies: Hx Peritoneal Dialysis Review of Systems - Review of Systems Notes: Constitutional: Negative for fever. HENT: Negative for sore throat. Eyes: Negative for visual changes. Cardiovascular: Negative for chest pain. Respiratory: Negative for shortness of breath. Gastrointestinal: Negative for abdominal pain, vomiting or diarrhea. Genitourinary: Negative for dysuria. Musculoskeletal: Negative for back pain. Skin: Negative for rash. Neurological: Negative for headaches, weakness or numbness. Psych: Positive for paranoia. 10 point ROS negative except as marked above and in HPI. Physical Exam - Vital signs Vitals: Temp Pulse Resp BP Pulse Ox 98.2 F 82 16 128/84 H 98 10/26/19 19:46 10/26/19 19:46 10/26/19 19:46 10/26/19 19:46 10/26/19 19:46 - Notes Notes: GENERAL: Well-appearing, well-nourished and in no acute distress. HEAD: Atraumatic, normocephalic. EYES: blind; conjunctiva are normal. NECK: Normal range of motion, supple without lymphadenopathy or JVD. LUNGS: No tachypnea. No signs of respiratory distress. ABDOMEN: Nondistended. EXTREMITIES: Normal range of motion, no pitting or edema. No clubbing or cyanosis. NEUROLOGICAL: Cranial nerves II through XII grossly intact. Normal speech, normal gait. PSYCH: Normal mood, normal affect. Paranoid. SKIN: Warm, Dry, normal turgor, no rashes or lesions noted. Course - Re-evaluation Re-evalutation: 10/26/19 lab work initiated to medically clear patient. 10/26/19 21:10 Discussed with pt need to change clothes to blue scrubs as this is policy. Pt states he will think about it. 10/26/19 22:11 Pt did change into blue scrubs. Now is refusing EKG, states "nothing is wrong with my heart." Discussed with pt. Pt still refusing. EKG cancelled. 10/27/19 02:57 Pt is still pending urine tests. However pt is medically cleared at this time for psych eval. Pt denies any urinary symptoms. - Vital Signs Vital signs: Temp Pulse Resp BP Pulse Ox 98.2 F 82 16 128/84 H 98 10/26/19 19:46 10/26/19 19:46 10/26/19 19:46 10/26/19 19:46 10/26/19 19:46 - Laboratory Result Diagrams: 10/26/19 21:19 10/26/19 21:19 Laboratory results interpreted by me: 10/26/19 10/26/19 21:19 21:19 RBC 3.69 L Hgb 11.7 L Hct 34.8 L [place] % (Auto) 14.4 H Salicylates < 1.0 L Acetaminophen < 10 L Discharge - Discharge Clinical Impression: Paranoia Condition: Stable Disposition: OTHER Referrals: CHICHI GALARZA MD [Primary Care Provider] - Follow up as needed
[2019-10-26 21:35] LABS: ABSOLUTE EOSINOPHILS # (AUTO) 0.1 10^3/uL (0.0-0.6); ABSOLUTE LYMPHOCYTES (AUTO) 1.5 10^3/uL (0.5-4.7); ABSOLUTE MONOCYTES (AUTO) 0.6 10^3/uL (0.1-1.4); ABSOLUTE NEUT (AUTO) 2.3 10^3/uL (1.7-8.2); BASOPHILS % (AUTO) 0.7 % (0-2); EOSINOPHILS % (AUTO) 1.4 % (0-6); HEMATOCRIT 34.8 % (37.9-51.0); HEMOGLOBIN 11.7 g/dL (13.5-17.0); LYMPHOCYTES % (AUTO) 32.8 % (13-45); MEAN CORPUSCULAR HEMOGLOBIN 31.6 pg (27.0-33.4); MEAN CORPUSCULAR HGB CONC 33.5 g/dL (32.0-36.0); MEAN CORPUSCULAR VOLUME 94 fl (80-97); MONOCYTES % (AUTO) 14.4 % (3-13); PLATELET COUNT 209 10^3/uL (150-450); RED BLOOD COUNT 3.69 10^6/uL (4.35-5.55); SEGMENTED NEUTROPHILS % (AUTO) 50.7 % (42-78); TOTAL CELLS COUNTED % (AUTO) 100 %; WHITE BLOOD COUNT 4.5 10^3/uL (4.0-10.5)
[2019-10-26 21:50] LABS: ALBUMIN 3.9 g/dL (3.5-5.0); ALKALINE PHOSPHATASE 71 U/L (38-126); ANION GAP 8 (5-19); ASPARTATE AMINO TRANSFERASE 23 U/L (17-59); BILIRUBIN,DIRECT 0.1 mg/dL (0.0-0.4); BILIRUBIN,TOTAL 0.7 mg/dL (0.2-1.3); BLOOD UREA NITROGEN 19 mg/dL (7-20); CARBON DIOXIDE 30 mmol/L (22-30); CHLORIDE 102 mmol/L (98-107); GLUCOSE 89 mg/dL (75-110); POTASSIUM 3.8 mmol/L (3.6-5.0)
[2019-10-26 21:54] LABS: ACETAMINOPHEN < 10 ug/mL (10-30); ALCOHOL < 10 mg/dL (NONE DETECTED); SALICYLATE < 1.0 mg/dL (2.0-20.0)
[2019-10-26] MEDS ORDERED: OLANZAPINE 5 MG TABLET PO SCH (22:30)
[2019-10-27] MEDS: DIVALPROEX SODIUM 125 MG CAP.SPRINK PO SCH ×3 (00:08→18:13)
--- NOTE | 2019-10-27 07:28 | PSYCHOLOGICAL NOTE ---
Psych Note - Psych Note Date seen by psych provider: 10/27/19 Time seen by psych provider: 06:45 Psych Note: Reason For Consult: psychosis, behavioral issues, medication noncompliance Patient is a 63 year old male who presents to ED via EMS from his alf for threatening staff and not taking his meds. Mobile Crisis also reported to EMS that patient reported he has not eaten in 4 days. Patient is well well known to clinician and department. Patient's current presentation (cheeking medications, responding to internal stimuli with verbal outbursts and needing frequent redirection) are all congruent with known presentation when the patient is off his mediations. Patient states he has not eaten in 7 months. Unprompted, patient states he does not need his medications because he is not behavioral. Patient states he was not aggressive with anyone at the alf. Patient spoke of Carmelo becoming invisible, Erin throwing spells, and not tripping Byron on purpose. Clinician spoke with patient about his medication noncompliance. Patient states he needs a clean mean to take his meds. When clinician asked patient what a clean meal looks like to him, patient responded "salt." Per verbal report from nurse and chart review, patient has been observed yelling about not raping anyone, and not running over someone in a car. Patient was observed inducing an episode of vomiting after taking medications. Updated 09:36- Spoke with APS wastewater supervisor, Lissy ([phone]), who gave permission to treat patient. Lissy was aware of patient's history of medication noncompliance, aggressive behaviors, and delusion regarding his food being poisoned. Lissy stated her expectation was that he would be sent inpatient. Clinician informed patient would be in the ED overnight for medication stabilization tonight with probably return to the alf tomorrow. Lissy replied, "well, we will see what happens." Clinician asked Lissy to contact the alf to make sure they will accept him back. Lissy stated that he is allowed to go back to the alf. When asked what the future plan is for the patient, given his history, Lissy stated they are referring patient to the ACTT team so that he can receive IM medications. Medication recommendations per [facility]'s contracted psychiatrist Dr. Natasha BILLY are as follows Please continue home medications: Restoril 15MG, daily Cogentin 1MG, daily Divalproex 125MG, twice a day Zyprexa 10MG, twice a day If there is available IM for a medication, please use as patient is known to cheek or regurgitate medications The patient may benefit from depakene rather than depaoke if he is found to refuse or cheek this pill. Impression\\plan: Patient is recommended for overnight mental health observation and medication stabilization. Medication recommendations have been provide to restart patient's home medications. Patient's Valproic acid level is well below therapeutic range. Patient's legal guardian is DSS, therefore patient is unable to leave AMA or otherwise sign himself out of the hospital. Patient has not engaged in self care (ie hygiene), suffers from paranoid delusions that he is being poisoned so refuses food and drink, and has verbal outbursts resulting from responding to internal stimuli. Patient is known to cheek or regurgitate medications and it is recommended to the patient receive medications in IM form if available. Dr. Preciado was consulted to care management of this patient; attending physicians in agreement with recommendations and disposition.
--- NOTE | 2019-10-27 08:35 | ER Document Report ---
Doctor's Note Notes: 10/27/19 08:34 Patient is resting quietly at this time. Spoke with the psychiatric team Katerine, patient is regurgitating his medications, will switch his Zyprexa and Cogentin to intramuscular. Spoke with the pharmacist, there is a one-to-one dosing when going from oral Zyprexa to intramuscular.
[2019-10-27] MEDS ORDERED: BENZTROPINE MESYLATE 1 MG TABLET PO SCH (10:00)
[2019-10-27 10:15] LABS: APPEARANCE,URINE CLOUDY; BILIRUBIN,URINE NEGATIVE (NEGATIVE); COLOR,URINE AMBER; GLUCOSE, URINE NEGATIVE (NEGATIVE); KETONES,URINE 20 mg/dL (NEGATIVE); LEUKOCYTE ESTERASE,URINE SMALL (NEGATIVE); NITRITE,URINE NEGATIVE (NEGATIVE); PROTEIN,URINE 100 mg/dL (NEGATIVE); URINE SPECIFIC GRAVITY 1.029
[2019-10-27] MEDS: OLANZAPINE INJ/PF 10 MG SDV IM SCH ×2 (10:19→18:19)
[2019-10-27] MEDS: BENZTROPINE MESYLATE INJ 2 MG/2 ML AMPULE IM SCH (10:19)
[2019-10-27 10:28] LABS: URINE AMPHETAMINES SCREEN NEGATIVE; URINE BARBITURATES SCREEN NEGATIVE; URINE BENZODIAZEPINES SCREEN NEGATIVE; URINE COCAINE SCREEN NEGATIVE; URINE MARIJUANA (THC) SCREEN NEGATIVE; URINE METHADONE SCREEN NEGATIVE; URINE PHENCYCLIDINE SCREEN NEGATIVE
--- NOTE | 2019-10-28 09:22 | PSYCHOLOGICAL NOTE ---
Psych Note - Psych Note Date seen by psych provider: 10/28/19 Time seen by psych provider: 08:30 Psych Note: Reason For Consult: psychosis, behavioral issues, medication noncompliance Patient is a 63 year old male who presents to ED via EMS from his nursing home for threatening staff and not taking his meds. [facility] also reported to EMS that patient reported he has not eaten in 4 days. Patient is well well known to clinician and department. Patient's current presentation (cheeking medications, responding to internal stimuli with verbal outbursts and needing frequent redirection) are all congruent with known presentation when the patient is off his mediations. [place] with [facility] has an appointment tomorrow with [facility] to establish services so that patient can receive IM medications at the nursing home. IM medications will allow for a better extermination supervisor outcome for patient, as IM medications will stop the cycle of frequent hospitalizations because he refuses medications. Medication recommendations per [facility]'s contracted psychiatrist Dr. Natasha BILLY are as follows Please continue home medications: Restoril 15MG, daily Cogentin 1MG, daily Divalproex 125MG, twice a day Zyprexa 10MG, twice a day If there is available IM for a medication, please use as patient is known to cheek or regurgitate medications The patient may benefit from depakene rather than depaoke if he is found to refuse or cheek this pill. Impression\plan: Patient is recommended for continued overnight mental health observation and medication stabilization. Medication recommendations have been provided to restart patient's home medications. Patient's Valproic acid level is not yet at therapeutic range. Patient's legal guardian is [employer], therefore patient is unable to leave A or otherwise sign himself out of the hospital. Patient has not engaged in self care (ie hygiene), suffers from paranoid delusions that he is being poisoned so refuses food and drink, and has verbal outbursts resulting from responding to internal stimuli. Patient is known to cheek or regurgitate medications and it is recommended to the patient receive medications in IM form if available. Dr. Preciado was consulted to care management of this patient; attending physicians in agreement with recommendations and disposition.
--- NOTE | 2019-10-28 09:23 | ER Document Report ---
Doctor's Note Notes: 10/28/19 09:23 Patient is ambulatory in the room. He is asking for food. No acute distress at this time. Awaiting further evaluation and management plan from the psychiatric team
[2019-10-28] MEDS: BENZTROPINE MESYLATE INJ 2 MG/2 ML AMPULE IM SCH (11:14)
[2019-10-28] MEDS: DIVALPROEX SODIUM 125 MG CAP.SPRINK PO SCH ×2 (11:16→19:42)
[2019-10-28] MEDS: OLANZAPINE INJ/PF 10 MG SDV IM SCH ×2 (11:16→19:42)
[2019-10-28 20:42] LABS: APPEARANCE,URINE CLEAR; BILIRUBIN,URINE NEGATIVE (NEGATIVE); COLOR,URINE YELLOW; GLUCOSE, URINE NEGATIVE (NEGATIVE); KETONES,URINE NEGATIVE (NEGATIVE); LEUKOCYTE ESTERASE,URINE TRACE (NEGATIVE); NITRITE,URINE NEGATIVE (NEGATIVE); PROTEIN,URINE NEGATIVE (NEGATIVE); URINE SPECIFIC GRAVITY 1.013
[2019-10-28] MEDS: TEMAZEPAM 15 MG CAPSULE PO SCH (22:21)
[2019-10-29] MEDS: DIVALPROEX SODIUM 125 MG CAP.SPRINK PO SCH ×2 (09:56→18:39)
[2019-10-29] MEDS: OLANZAPINE INJ/PF 10 MG SDV IM SCH ×2 (10:00→18:39)
[2019-10-29] MEDS: BENZTROPINE MESYLATE INJ 2 MG/2 ML AMPULE IM SCH (10:05)
--- NOTE | 2019-10-29 11:57 | ER Document Report ---
Doctor's Note Notes: 10/29/19 11:56 PHYSICAL EXAMINATION: GENERAL: Appears well, healthy, well-nourished, no acute distress. LUNGS: Equal breath sounds bilaterally and clear to auscultation. No wheezes rales or rhonchi. CARDIOVASCULAR: S1-S2, regular rate, regular rhythm. Radial pulses 2+, normal. ABDOMEN: Normoactive bowel sounds. Soft, nontender, no guarding, no rebound tenderness, and no masses palpated. PSYCH: Normal mood, normal affect. Patient has no specific complaints at this time. Awaiting mental health disposition. Patient denies any plan on hurting himself. He denies any homicidal ideation. Denies any pain. According to mental Health, thee patient is "cheeking his medication. At this time, patient will continue to stay here in the emergency department and will be reevaluated in the morning.
--- NOTE | 2019-10-29 12:24 | PSYCHOLOGICAL NOTE ---
Psych Note - Psych Note Date seen by psych provider: 10/29/19 Time seen by psych provider: 10:20 Psych Note: Reason for Consult: psychosis, behavioral issues, medication noncompliance Patient is a 63 year old male who presents to ED via EMS from his snf for threatening staff and not taking his meds. [facility] also reported to EMS that patient reported he has not eaten in 4 days. Patient is well well known to clinician and department. Patient's current presentation (cheeking medications, responding to internal stimuli with verbal outbursts and needing frequent redirection) are all congruent with known presentation when the patient is off his mediations. Check in conducted with patient: Patient continues to require medications in IM form. He is provided Depakote sprinkles due to it not being available in IM form. Today patient attempted to throw make himself throw up after receiving his Depakote sprinkles. Patient continues to demonstrate needing frequent redirection. Medication recommendations per [facility]'s contracted psychiatrist Dr. Natasha BILLY are as follows Please continue home medications: Restoril 15MG, daily Cogentin 1MG, daily Divalproex 125MG, twice a day Zyprexa 10MG, twice a day If there is available IM for a medication, please use as patient is known to cheek or regurgitate medications The patient may benefit from depakene rather than depaoke if he is found to refuse or cheek this pill. Impression\plan: Patient is recommended for continued overnight mental health observation and medication stabilization. Medication recommendations have been provided to restart patient's home medications. Patient's Valproic acid level is not yet at therapeutic range. He continues to attempt to make himself vomit after receiving Depakote sprinkles (all other medications are in IM form). Patient's legal guardian is [employer], therefore patient is unable to leave AMA or otherwise sign himself out of the hospital. Patient has not engaged in self care (ie hygiene), suffers from paranoid delusions that he is being poisoned so refuses food and drink, and has verbal outbursts resulting from responding to internal stimuli. Patient is known to cheek or regurgitate medications and it is recommended to the patient receive medications in IM form if available. Dr. Preciado was consulted to care management of this patient; attending physicians in agreement with recommendations and disposition.
[2019-10-29] MEDS: CEPHALEXIN 500 MG CAPSULE PO SCH ×2 (20:59→21:13)
[2019-10-29] MEDS: TEMAZEPAM 15 MG CAPSULE PO SCH ×2 (20:59→21:13)
[2019-10-30] MEDS ORDERED: LIDOCAINE 1% INJ-PF (10 MG/ML) 30 ML SDV INJ ONE (05:35)
--- NOTE | 2019-10-30 05:37 | ER Document Report ---
Doctor's Note Notes: 10/30/19 05:36 I noticed possible UTI from initial visit. New UA was acceptable, but UC is growing bacteria currently. I originally ordered keflex, but pt does not cooperate with PO meds so rocephin has now been ordered for daily dosing. No other issues throughout the night.
[2019-10-30] MEDS: CEFTRIAXONE INJ 1000 MG VIAL IM SCH ×2 (05:52→10:17)
[2019-10-30] MEDS ORDERED: LIDOCAINE 1% INJ-PF (10 MG/ML) 30 ML SDV ONE (09:35)
[2019-10-30] MEDS: OLANZAPINE INJ/PF 10 MG SDV IM SCH ×2 (10:17→18:20)
[2019-10-30] MEDS: BENZTROPINE MESYLATE INJ 2 MG/2 ML AMPULE IM SCH (10:17)
--- NOTE | 2019-10-30 10:18 | ER Document Report ---
Doctor's Note Notes: 10/30/19 10:16 Patient's vital signs and previous labs, diagnostic images reviewed. Reviewed mental health notes, nurse's notes and previous providers notes. VSS. Pt is in no distress at this time. Denies any SI or HI. General: A&Ox3. Answers questions appropriately. Heart: RRR Lungs: CTAB Psych: aggressive, yelling A/P: Continue monitoring and rec's per MH. Normal diet Waiting for mental health to determine disposition for patient.
[2019-10-30] MEDS: DIVALPROEX SODIUM 125 MG CAP.SPRINK PO SCH ×2 (10:20→18:19)
[2019-10-30] MEDS: TEMAZEPAM 15 MG CAPSULE PO SCH (23:14)
[2019-10-31] MEDS ORDERED: LIDOCAINE 1% INJ-PF (10 MG/ML) 30 ML SDV ONE (09:10)
[2019-10-31] MEDS: BENZTROPINE MESYLATE INJ 2 MG/2 ML AMPULE IM SCH (09:27)
[2019-10-31] MEDS: OLANZAPINE INJ/PF 10 MG SDV IM SCH ×3 (09:28→19:14)
[2019-10-31] MEDS: CEFTRIAXONE INJ 1000 MG VIAL IM SCH (09:28)
[2019-10-31] MEDS: DIVALPROEX SODIUM 125 MG CAP.SPRINK PO SCH ×3 (09:32→19:16)
[2019-10-31] MEDS: CHLORPROMAZINE HCL INJ 25 MG/1 ML AMPULE IM SCH ×4 (10:21→19:15)
--- NOTE | 2019-10-31 17:31 | PSYCHOLOGICAL NOTE ---
Psych Note - Psych Note Date seen by psych provider: 10/31/19 Time seen by psych provider: 08:20 Psych Note: Reason for Consult: psychosis, behavioral issues, medication noncompliance Patient is a 63 year old male who presents to ED via EMS from his long-term for threatening staff and not taking his meds. [facility] also reported to EMS that patient reported he has not eaten in 4 days. Patient is well well known to clinician and department. Patient's current presentation (cheeking medications, responding to internal stimuli with verbal outbursts and needing frequent redirection) are all congruent with known presentation when the patient is off his mediations. Check in conducted with patient: Patient's presentation has not changed. Patient continues to require medications in IM form. Patient continues to request PO medications. Patient was explained t hat he could not receive PO medications until he is able to take medications without attempting to induce vomiting. Medication recommendations per [facility]'s contracted psychiatrist Dr. Natasha BILLY are as follows UPDATED Discontinue Restoril 15MG, daily Continue Cogentin 1MG, daily Change Depakote TO 250MG, twice a day Change Zyprexa TO 5MG, twice a day Change Thorazine TO 50MG, twice a day Add Seroquel TO 50MG, at bedtime If there is available IM for a medication, please use as patient is known to cheek or regurgitate medications The patient may benefit from depakene rather than depaoke if he is found to refuse or cheek this pill. Impression\plan: Patient is recommended for continued overnight mental health observation and medication stabilization. Medication recommendations have been adjusted. Patient's Valproic acid level is not yet at therapeutic range. He continues to attempt to make himself vomit after receiving Depakote sprinkles (all other medications are in IM form). Patient's legal guardian is [employer], therefore patient is unable to leave AMA or otherwise sign himself out of the hospital. Patient has not engaged in self care (ie hygiene), suffers from paranoid delusions that he is being poisoned so refuses food and drink, and has verbal outbursts resulting from responding to internal stimuli. Patient is known to cheek or regurgitate medications and it is recommended to the patient receive medications in IM form if available. Dr. Preciado was consulted to care management of this patient; attending physicians in agreement with recommendations and disposition.
--- NOTE | 2019-10-31 19:39 | ER Document Report ---
Doctor's Note Notes: 10/31/19 16:30 PHYSICAL EXAMINATION: GENERAL: Appears well, healthy, well-nourished, no acute distress. LUNGS: Equal breath sounds bilaterally and clear to auscultation. No wheezes rales or rhonchi. CARDIOVASCULAR: S1-S2, regular rate, regular rhythm. Radial pulses 2+, normal. ABDOMEN: Normoactive bowel sounds. Soft, nontender, no guarding, no rebound tenderness, and no masses palpated. PSYCH: Normal mood, normal affect. Mental health recommendations are to change Thorazine 200 mg IM 3 times daily, Depakote 125 mg p.o. twice daily, Zyprexa 10 mg IM twice daily, Seroquel 100 mg p.o. twice daily and continue Cogentin 1 mg daily. 10/31/19 19:30 Patient was more sedated for the changes were made by [facility]. They are now changing the Thorazine to 50 mg IM twice daily. Depakote will be changed to 250 mg p.o. twice daily. Zyprexa will be changed to 5 mg IM twice daily, and Seroquel will be changed to 50 mg IM nightly.
[2019-10-31] MEDS ORDERED: QUETIAPINE FUMARATE 100 MG TABLET PO SCH (22:00)
[2019-10-31] MEDS: QUETIAPINE FUMARATE 25 MG TABLET PO SCH (22:15)
[2019-11-01] MEDS: CHLORPROMAZINE HCL INJ 25 MG/1 ML AMPULE IM SCH ×2 (09:18→17:58)
[2019-11-01] MEDS: CEFTRIAXONE INJ 1000 MG VIAL IM SCH (09:18)
[2019-11-01] MEDS: OLANZAPINE INJ/PF 10 MG SDV IM SCH ×2 (09:18→17:58)
[2019-11-01] MEDS: DIVALPROEX SODIUM 125 MG CAP.SPRINK PO SCH ×2 (09:18→17:58)
[2019-11-01] MEDS: BENZTROPINE MESYLATE INJ 2 MG/2 ML AMPULE IM SCH (09:19)
--- NOTE | 2019-11-01 10:25 | ER Document Report ---
Doctor's Note Notes: 11/01/19 10:24 PHYSICAL EXAMINATION: GENERAL: Appears well, healthy, well-nourished, no acute distress. LUNGS: Equal breath sounds bilaterally and clear to auscultation. No wheezes rales or rhonchi. CARDIOVASCULAR: S1-S2, regular rate, regular rhythm. Radial pulses 2+, normal. ABDOMEN: Normoactive bowel sounds. Soft, nontender, no guarding, no rebound tenderness, and no masses palpated. PSYCH: Depressed mood. Withdrawn. Patient had an unremarkable events overnight. Patient calm and cooperative. Patient does not remember that he ate breakfast this morning. Denies any suicidal or homicidal ideation. Still waiting on placement.
--- NOTE | 2019-11-01 18:48 | PSYCHOLOGICAL NOTE ---
Psych Note - Psych Note Date seen by psych provider: 11/01/19 Time seen by psych provider: 10:00 Psych Note: Reason for Consult: psychosis, behavioral issues, medication noncompliance Patient is a 63 year old male who presents to ED via EMS from his nursing home for threatening staff and not taking his meds. [facility] also reported to EMS that patient reported he has not eaten in 4 days. Patient is well well known to clinician and department. Patient's current presentation (cheeking medications, responding to internal stimuli with verbal outbursts and needing frequent redirection) are all congruent with known presentation when the patient is off his mediations. Check in conducted with patient: Patient's presentation has not changed. Patient continues to require medications in IM form. Patient continues to request PO medications. Patient was explained that he could not receive PO medications until he is able to take medications without attempting to induce vomiting. Patient spoke of drowsiness; clinician explained he may be drowsy over the next couple of days as his body adjusts to the medications. Medication recommendations per [facility]'s contracted psychiatrist Dr. Natasha BILLY are as follows Continue Cogentin 1MG, daily Continue Depakote 250MG, twice a day Continue Zyprexa 5MG, twice a day Continue Thorazine 50MG, twice a day Continue Seroquel 50MG, at bedtime If there is available IM for a medication, please use as patient is known to cheek or regurgitate medications The patient may benefit from depakene rather than depaoke if he is found to refuse or cheek this pill. Impression\plan: Patient is recommended for continued overnight mental health observation and medication stabilization. Medication recommendations have been adjusted. Patient's Valproic acid level is not yet at therapeutic range. He continues to attempt to make himself vomit after receiving Depakote sprinkles (all other medications are in IM form). Patient's legal guardian is [employer], therefore patient is unable to leave AMA or otherwise sign himself out of the hospital. Patient has not engaged in self care (ie hygiene), suffers from paranoid delusions that he is being poisoned so refuses food and drink, and has verbal outbursts resulting from responding to internal stimuli. Patient is known to cheek or regurgitate medications and it is recommended to the patient receive medications in IM form if available. Dr. Preciado was consulted to care management of this patient; attending physicians in agreement with recommendations and disposition.
[2019-11-01] MEDS: QUETIAPINE FUMARATE 25 MG TABLET PO SCH (23:41)
[2019-11-02] MEDS: CEFTRIAXONE INJ 1000 MG VIAL IM SCH ×2 (10:00→11:51)
[2019-11-02] MEDS: OLANZAPINE INJ/PF 10 MG SDV IM SCH ×2 (10:00→11:50)
[2019-11-02] MEDS: BENZTROPINE MESYLATE INJ 2 MG/2 ML AMPULE IM SCH ×2 (10:00→11:50)
[2019-11-02] MEDS: CHLORPROMAZINE HCL INJ 25 MG/1 ML AMPULE IM SCH ×2 (10:00→11:49)
[2019-11-02] MEDS: DIVALPROEX SODIUM 125 MG CAP.SPRINK PO SCH ×2 (10:00→19:39)
--- NOTE | 2019-11-02 11:00 | PSYCHOLOGICAL NOTE ---
Psych Note - Psych Note Date seen by psych provider: 10/30/19 Time seen by psych provider: 08:00 Psych Note: Reason for Consult: psychosis, behavioral issues, medication noncompliance Patient is a 63 year old male who presents [facility] ED via EMS from his [facility] for threatening staff and not taking his meds. [facility] also reported to EMS that patient reported he has not eaten in 4 days. Patient is well well known to clinician and department. Patient's current presentation (cheeking medications, responding to internal stimuli with verbal outbursts and needing frequent redirection) are all congruent with known presentation when the patient is off his mediations. Check in conducted with patient: Patient continues to require medications in IM form. There is little change in the patient's presentation. Evening staff report the patient has not been sleep ing at all during the night. He continues to need frequent redirection. Medication recommendations per [facility]'s contracted psychiatrist Dr. Natasha BILLY are as follows Please continue home medications: Restoril 15MG, daily Cogentin 1MG, daily Divalproex 125MG, twice a day Zyprexa 10MG, twice a day If there is available IM for a medication, please use as patient is known to cheek or regurgitate medications The patient may benefit from depakene rather than depaoke if he is found to refuse or cheek this pill. Impression\plan: Patient is recommended for continued overnight mental health observation and medication stabilization. Medication recommendations have been provided to restart patient's home medications. Patient's Valproic acid level is not yet at therapeutic range. He continues to attempt to make himself vomit after receiving Depakote sprinkles (all other medications are in IM form). Patient's legal guardian is [employer], therefore patient is unable to leave AMA or otherwise sign himself out of the hospital. Patient has not engaged in self care (ie hygiene), suffers from paranoid delusions that he is being poisoned so refuses food and drink, and has verbal outbursts resulting from responding to internal stimuli. Patient is known to cheek or regurgitate medications and it is recommended to the patient receive medications in IM form if available. Dr. Preciado was consulted to care management of this patient; attending physicians in agreement with recommendations and disposition.
[2019-11-02] MEDS ORDERED: CHLORPROMAZINE HCL 50 MG TABLET PO ONE (11:41)
[2019-11-02] MEDS ORDERED: OLANZAPINE 5 MG TABLET PO ONE (11:41)
[2019-11-02] MEDS ORDERED: BENZTROPINE MESYLATE 1 MG TABLET PO ONE (11:41)
[2019-11-02] MEDS ORDERED: DIVALPROEX SODIUM 125 MG CAP.SPRINK PO ONE (11:41)
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
--- NOTE | 2019-11-02 17:26 | ER Document Report ---
ED Medical Screen (RME) - General Chief Complaint: Psych Problem Stated Complaint: PSYCH Time Seen by Provider: 10/26/19 20:37 Primary Care Provider: CHICHI GALARZA MD [Primary Care Provider] - Follow up as needed TRAVEL OUTSIDE OF THE [place] IN LAST 30 DAYS: No - HPI Notes: 11/02/19 17:22 Patient is a 63-year-old male well-known to the emergency department with history of behavioral issues, medication noncompliance, and psychosis presents about 1 week ago from his correction for threatening staff and not taking his meds. Since then he has received intramuscular injections and was switched back to p.o. medications which she has been compliant with thus far. Patient states that he is feeling well. He has been eating and drinking without difficulty. He is urinating normally and having normal bowel movements. I did have him started on some antibiotics for urinary infection last week and we will reevaluate his urine today to assess resolution. Denies any headache, fever, neck pain, URI, sore throat, chest pain, palpitations, syncope, cough, shortness of breath, wheeze, dyspnea, abdominal pain, nausea/vomiting/diarrhea, urinary retention, dysuria, hematuria, or rash. General: A&Ox3. Answers questions appropriately. Heart: RRR Lungs: CTAB Psych: Normal mood/affect A/P: Continue monitoring and med rec's per . The tentative plan is for [facility] who is working on placement and checking to see if he can go back to his former shelter. We will continue with p.o. medications Normal diet - Related Data Allergies/Adverse Reactions: No Known Allergies Allergy (Verified 12/26/18 08:06) Home Medications: Pt has list of meds but has not been taking for the past several weeks Past Medical History - Social History Chew tobacco use (# tins/day): No Frequency of alcohol use: None Drug Abuse: None Neurological Medical History: Reports: Hx Migraine Renal/ Medical History: Denies: Hx Peritoneal Dialysis Physical Exam - Vital signs Vitals: Temp Pulse Resp BP Pulse Ox 98.2 F 82 16 128/84 H 98 10/26/19 19:46 10/26/19 19:46 10/26/19 19:46 10/26/19 19:46 10/26/19 19:46 Course - Vital Signs Vital signs: Temp Pulse Resp BP Pulse Ox 98.2 F 76 18 123/65 99 11/02/19 06:00 11/02/19 06:00 11/02/19 06:00 11/02/19 06:00 11/02/19 06:00 - Laboratory Result Diagrams: 10/26/19 21:19 10/26/19 21:19 Laboratory results interpreted by me: 10/26/19 10/26/19 10/26/19 21:19 21:19 21:19 RBC 3.69 L Hgb 11.7 L Hct 34.8 L [place] % (Auto) 14.4 H Urine Protein Urine Ketones Urine Urobilinogen Ur Leukocyte Esterase Salicylates < 1.0 L Acetaminophen < 10 L Valproic Acid < 10.0 L 10/27/19 10/28/19 11/02/19 09:44 20:26 13:25 RBC Hgb Hct [place] % (Auto) Urine Protein 100 H Urine Ketones 20 H Urine Urobilinogen 4.0 H 2.0 H Ur Leukocyte Esterase SMALL H TRACE H Salicylates Acetaminophen Valproic Acid 31.0 L Doctor's Discharge - Discharge Clinical Impression: Paranoia Condition: Stable Disposition: HOME, SELF-CARE Additional Instructions: You have been evaluated by both medical and behavioral health teams for paranoia and have been deemed appropriate for discharge. While in the emergency depa rtment you received the following services: Medical screening and assessment, nursing services, dietary services, pharmacological services, one-on-one counseling and/or psychotherapy, environmental services, and continuous observation by a patient plant safety engineer. Medication adjustment have been conducted as the following: discontinue home medication of Restoril Continue Cogentin 1MG, daily Continue Depakote 250MG, twice a day Continue Zyprexa 5MG, twice a day Continue Thorazine 50MG, twice a day Continue Seroquel 50MG, at bedtime AT ANY TIME, IF YOUR SYMPTOMS CHANGE SIGNIFICANTLY OR WORSEN OR YOU DEVELOP NEW SYMPTOMS, RETURN TO THE EMERGENCY DEPARTMENT IMMEDIATELY FOR RE-EVALUATION. Referrals: CHICHI GALARZA MD [Primary Care Provider] - Follow up as needed
[2019-11-02] MEDS: CHLORPROMAZINE HCL 50 MG TABLET PO SCH (19:39)
[2019-11-02] MEDS: OLANZAPINE 5 MG TABLET PO SCH (19:39)
[2019-11-02] MEDS: QUETIAPINE FUMARATE 25 MG TABLET PO SCH (23:16)
[2019-11-03 01:03] LABS: APPEARANCE,URINE SLIGHTLY-CLOUDY; BILIRUBIN,URINE NEGATIVE (NEGATIVE); COLOR,URINE YELLOW; GLUCOSE, URINE NEGATIVE (NEGATIVE); KETONES,URINE NEGATIVE (NEGATIVE); PROTEIN,URINE NEGATIVE (NEGATIVE); URINE SPECIFIC GRAVITY 1.026; UROBILINOGEN,URINE NEGATIVE mg/dL (<2.0)
[2019-11-03] MEDS: BENZTROPINE MESYLATE 1 MG TABLET PO SCH ×2 (07:25→10:13)
--- NOTE | 2019-11-03 08:56 | ER Document Report ---
Doctor's Note Notes: 11/03/19 08:56 See original note for addendum regarding today's disposition.
[2019-11-03] MEDS: DIVALPROEX SODIUM 125 MG CAP.SPRINK PO SCH (10:10)
[2019-11-03] MEDS: CHLORPROMAZINE HCL 50 MG TABLET PO SCH (10:10)
[2019-11-03] MEDS: OLANZAPINE 5 MG TABLET PO SCH (10:10)
[2019-11-03] MEDS: CEFTRIAXONE INJ 1000 MG VIAL IM SCH (10:16)
[2019-11-03 10:37] VITALS: BP 118/72
== END 2019-11-03 10:32 | disposition home or self-care (01) ==
LOC: ER 19:33
DX: F22 Delusional disorders (principal); Z87.891 Personal history of nicotine dependence; Z79.899 Other long term (current) drug therapy
CPT/HCPCS: 36415; 87086; 80307 ×4; 85025; 87088; 80053; 81001; 80164; 87186; A9270 ×11; J0515 ×4; J3490 ×5; J0696; 96372; 99285; J3230